=== PATIENT | female | born 1930 | race Caucasian/White ===

== ENCOUNTER → 2017-01-28 | Outpatient (CLI) | payer MEDICARE ==
--- NOTE | 2017-01-28 10:51 | RADIOLOGY REPORT (SQ) ---
EXAM DESCRIPTION: U/S RETROPERITON LTD COMPLETED DATE/TIME: 01/28/2017 9:29 am REASON FOR STUDY: ABDOMINAL AORTIC ANEURYSM (AORTA ONLY) I71.4 ABDOMINAL AORTIC ANEURYSM, WITHOUT R UPTURE COMPARISON: Ultrasound abdomen 01/25/2016 CT abdomen pelvis 10/18/2013 TECHNIQUE: Dynamic and static grayscale images acquired of the abdominal aorta and recorded on PACS. Additional selected color Doppler and spectral images recorded. LIMITATIONS: None. FINDINGS: Patient has a known infrarenal abdominal aortic aneurysm. At its widest it measures about 5.4 x 4.8 cm in diameter. This is larger than on previous measurements. Consider CT abdomen pelvis with contrast, particular attention to the abdominal aorta for followup. The upper abdominal aorta measures 2.2 x 2.6 cm, mid abdominal aorta 3.5 x 3.2 cm. Proximal common i liac arteries are not well seen. IMPRESSION: Increase in size of infrarenal abdominal aortic aneurysm as compared to 01/25/2016. Cons ider contrast CT angio of the abdomen and pelvis for follow-up. TECHNICAL DOCUMENTATION: JOB ID: [id number]- All Rights Reserved
== END ==
LOC: RAD 08:02
PROVIDERS: ATTEND Physician Assistant
DX: I71.4 Abdominal aortic aneurysm, without rupture (principal)
CPT/HCPCS: 76775

== ENCOUNTER 2017-04-05 15:12 | Emergency (ER) | payer MEDICARE ==
[2017-04-05] MEDS ORDERED: ASPIRIN 325 MG TABLET PO ONE (15:32)
--- NOTE | 2017-04-05 15:34 | ER Document Report ---
ED Medical Screen (RME) - General Chief Complaint: Chest Pain Stated Complaint: CHEST PAIN Time Seen by Provider: 04/05/17 15:32 Mode of Arrival: Wheelchair Information source: Patient, Relative TRAVEL OUTSIDE OF THE U.S. IN LAST 30 DAYS: No - HPI Patient complains to provider of: CP Onset: Other - Pt. with known aneurysm with onset of SSCP today. Did not take ASA yet - Related Data Allergies/Adverse Reactions: No Known Allergies Allergy (Verified 10/18/13 14:56) Past Medical History Pulmonary Medical History: Reports: Hx COPD Past Surgical History: Reports: Hx Gynecologic Surgery - UTERINE FIBROID, Hx Tubal Ligation - Immunizations Hx Diphtheria, Pertussis, Tetanus Vaccination: Yes
--- NOTE | 2017-04-05 15:56 | ER Document Report ---
ED General - General Chief Complaint: Chest Pain Stated Complaint: CHEST PAIN Time Seen by Provider: 04/05/17 15:32 Mode of Arrival: Wheelchair Notes: Patient is complaining of a sharp pain in her posterior left thoracic back that started a couple of hours ago while she was sitting at the computer. She did nothing unusual, no unusual activity or straining. Had not been sitting at the computer any longer than she has on many previous occasions. Pain comes and goes, lasting a few seconds or more when it comes and then remits. She is found nothing she can do to make it better or worse. It goes from the back lower posterior thoracic ribs straight through into the left front of the chest. Has never had this before. Denies any difficulty breathing or shortness of breath. No cough or cold or chest congestion. Denies any recent illness. Denies fever. Denies UTI symptoms. Denies abdominal pain, vomiting, or diarrhea. Patient has no history of heart disease. She was diagnosed with a an aortic aneurysm about 8 years ago. She was followed for this condition a couple of times a year until a year or so ago when they reduce the number of times that she was getting studies done to just once a year. 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 Patient has no real significant past medical history. Has been told she has a low blood pressure. Not diabetic. No history of heart disease. Only surgery is BTL. Only medication is for GERD. Patient stop smoking about 8 or 9 years ago. TRAVEL OUTSIDE OF THE U.S. IN LAST 30 DAYS: No - Related Data Allergies/Adverse Reactions: No Known Allergies Allergy (Verified 10/18/13 14:56) Home Medications: Current Home Medications Omeprazole [Omeprazole] 40 mg PO DAILY 04/05/17 [History] Past Medical History - General Information source: Patient, Relative - Social History Smoking Status: Former Smoker Family History: Reviewed & Not Pertinent - Past Medical History Cardiac Medical History: Reports: Other - History of abdominal aortic aneurysm Pulmonary Medical History: Reports: Hx COPD GI Medical History: Reports: Hx Gastroesophageal Reflux Disease Past Surgical History: Reports: Hx Gynecologic Surgery - UTERINE FIBROID, Hx Tubal Ligation - Immunizations Hx Diphtheria, Pertussis, Tetanus Vaccination: Yes Review of Systems - Review of Systems Notes: REVIEW OF SYSTEMS: CONSTITUTIONAL : Denies fever. EENT: Denies eye, ear, nose or mouth or throat pain or other symptoms. CARDIOVASCULAR: See HPI. RESPIRATORY: Denies cough, chest congestion, or shortness of breath. GASTROINTESTINAL: Denies abdominal pain or nausea, vomiting, or diarrhea. GENITOURINARY: Denies difficulty or painful urinating, urinary frequency, blood in urine. MUSCULOSKELETAL: Denies back or neck pain, but see HPI. Denies joint pain or swelling. SKIN: Denies rash or skin lesions. NEUROLOGICAL: Denies LOC or altered mental status. Denies headache. Denies sensory loss or motor deficits. ALL OTHER SYSTEMS REVIEWED AND NEGATIVE. Physical Exam - Vital signs Vitals: Temp Pulse Resp BP Pulse Ox 97.9 F 71 22 H 157/100 H 97 04/05/17 15:26 04/05/17 15:26 04/05/17 15:26 04/05/17 15:26 04/05/17 15:26 Interpretation: Normal - Notes Notes: PHYSICAL EXAMINATION: GENERAL: Well-appearing, in no acute distress. Anxious. Periodically jumps as if she is having sudden pain and says that is when she is feeling the sharp pain in the lower left thoracic back towards the front of the chest. HEAD: Atraumatic, normocephalic. EYES: Pupils equal round and reactive to light, extraocular movements intact. ENT: oropharynx clear without exudates. Moist mucous membranes. NECK: Normal range of motion, supple. LUNGS: Breath sounds clear and equal bilaterally. HEART: Regular rate and rhythm without murmurs. ABDOMEN: Soft, nontender. No guarding or rebound. 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 Patient is not aware of having this mass on her back, but we can see description of it in medical records here from a couple of years ago. When I touch it, it seems to elicit the pain that the patient is describing, but at other times it occurs when I am not touching the lipoma. Sometimes, no tenderness throughout entire back. EXTREMITIES: Normal range of motion without pain. Negative Homans bilaterally. NEUROLOGICAL: Normal speech, normal gait. Normal sensory, motor, and reflex exams. Awake, alert, and oriented x3. Cranial nerves normal. PSYCH: Normal mood, normal affect. SKIN: Warm, dry, no rashes. Course - Re-evaluation Re-evalutation: 04/05/17 20:06 Based upon patient's ultrasound of the aortic aneurysm, I contacted Dr. Ocasio in [place], vascular surgeon managed care liaison for this patient's doctor, and he wishes to see the patient in their emergency department. Arrangements will be made to transfer the patient there. - Vital Signs Vital signs: Temp Pulse Resp BP Pulse Ox 97.9 F 71 20 109/89 H 95 04/05/17 15:26 04/05/17 15:26 04/05/17 18:01 04/05/17 18:01 04/05/17 18:01 - Laboratory Result Diagrams: 04/05/17 15:55 04/05/17 15:55 Laboratory results interpreted by me: 04/05/17 04/05/17 04/05/17 15:55 15:55 16:40 RDW 14.2 H Est GFR (Non-Af Amer) 56 L Direct Bilirubin 0.5 H AST 42 H Urine Blood SMALL H Ur Leukocyte Esterase TRACE H - Diagnostic Test Radiology reviewed: Image reviewed, Reports reviewed - Ultrasound of the back reveals the described lipoma. Ultrasound of the aorta shows the aneurysm to be 5.3 cm in diameter compared to 5.1 cm on a previous film here January 28, 2017. Radiology results interpreted by me: 04/05/17 20:05 Chest x-ray is essentially normal. - EKG Interpretation by Me EKG shows normal: Sinus rhythm Rate: Normal Rhythm: NSR Additional EKG results interpreted by me: 04/05/17 20:05 EKG is essentially normal. - Transfer of Care Care transferred to following provider: Dr. Auguste Notes: 04/05/17 20:10 Patient's transport to [place] should be here in about 15 minutes. Patient has been presented to Dr. Ferreira who will be available as needed between now and the patient's discharge. Discharge - Discharge Clinical Impression: Abdominal aortic aneurysm, Left flank pain Referrals: MELIZA IBARRA PA-C [Primary Care Provider] - Follow up as needed
[2017-04-05] MEDS ORDERED: METHOCARBAMOL 750 MG TABLET PO ONE (15:57)
[2017-04-05 16:11] LABS: ABSOLUTE EOSINOPHILS # (AUTO) 0.1 10^3/uL (0.0-0.6); ABSOLUTE LYMPHOCYTES (AUTO) 1.7 10^3/uL (0.5-4.7); ABSOLUTE MONOCYTES (AUTO) 0.6 10^3/uL (0.1-1.4); ABSOLUTE NEUT (AUTO) 4.2 10^3/uL (1.7-8.2); BASOPHILS % (AUTO) 0.6 % (0-2); EOSINOPHILS % (AUTO) 0.9 % (0-6); HEMATOCRIT 40.2 % (36.0-47.0); HEMOGLOBIN 13.9 g/dL (12.0-15.5); HGB HCT DIFFERENCE 1.5; LYMPHOCYTES % (AUTO) 26.1 % (13-45); MEAN CORPUSCULAR HEMOGLOBIN 32.2 pg (27.0-33.4); MEAN CORPUSCULAR HGB CONC 34.5 g/dL (32.0-36.0); MEAN CORPUSCULAR VOLUME 93 fl (80-97); MONOCYTES % (AUTO) 8.9 % (3-13); RED CELL DISTRIBUTION WIDTH 14.2 % (11.5-14.0); SEGMENTED NEUTROPHILS % (AUTO) 63.5 % (42-78); WHITE BLOOD COUNT 6.6 10^3/uL (4.0-10.5)
[2017-04-05 16:30] LABS: ALANINE AMINOTRANSFERASE 38 U/L (9-52); ALKALINE PHOSPHATASE 91 U/L (38-126); ANION GAP 10 (5-19); ASPARTATE AMINO TRANSFERASE 42 U/L (14-36); BILIRUBIN,DIRECT 0.5 mg/dL (0.0-0.4); BILIRUBIN,TOTAL 0.7 mg/dL (0.2-1.3); BLOOD UREA NITROGEN 13 mg/dL (7-20); CALCIUM 9.5 mg/dL (8.4-10.2); CARBON DIOXIDE 26 mmol/L (22-30); CHLORIDE 105 mmol/L (98-107); CREATINE KINASE 99 U/L (30-135); CREATININE RESULT 0.95 mg/dL (0.52-1.25); GLUCOSE 91 mg/dL (75-110); POTASSIUM 3.8 mmol/L (3.6-5.0); SODIUM 141.1 mmol/L (137-145); TOTAL PROTEIN 7.5 g/dL (6.3-8.2)
[2017-04-05 16:41] LABS: CREATINE KINASE MB 1.87 ng/mL (<4.55)
--- NOTE | 2017-04-05 16:42 | RADIOLOGY REPORT (SQ) ---
EXAM DESCRIPTION: CHEST PA/LAT COMPLETED DATE/TIME: 04/05/2017 4:33 pm REASON FOR STUDY: cp COMPARISON: 02/12/2015 EXAM PARAMETERS: NUMBER OF VIEWS: two views TECHNIQUE: Digital Frontal and Lateral radiographic views of the chest acquired. RADIATION DOSE: NA LIMITATIONS: none FINDINGS: LUNGS AND PLEURA: Stable chronic lung change without new opacities, masses or pneumothorax . No pleural effusion. MEDIASTINUM AND HILAR STRUCTURES: No masses or contour abnormalities. HEART AND VASCULAR STRUCTURES: Heart normal size. No evidence for failure. BONES: No acute findings. HARDWARE: None in the chest. OTHER: No other significant finding. IMPRESSION: NO ACUTE CARDIOPULMONARY PROCESS. NO SIGNIFICANT CHANGE FROM PRIOR STUDY. TECHNICAL DOCUMENTATION: JOB ID: [id number] [employer]- All Rights Reserved
[2017-04-05 16:45] LABS: TROPONIN I < 0.012 ng/mL
[2017-04-05 18:14] LABS: APPEARANCE,URINE CLOUDY; BILIRUBIN,URINE NEGATIVE (NEGATIVE); GLUCOSE, URINE NEGATIVE (NEGATIVE); KETONES,URINE NEGATIVE (NEGATIVE); LEUKOCYTE ESTERASE,URINE TRACE (NEGATIVE); NITRITE,URINE NEGATIVE (NEGATIVE); PROTEIN,URINE NEGATIVE (NEGATIVE); URINE SPECIFIC GRAVITY 1.008; UROBILINOGEN,URINE NEGATIVE mg/dL (<2.0)
--- NOTE | 2017-04-05 19:14 | RADIOLOGY REPORT (SQ) ---
EXAM DESCRIPTION: U/S RETROPERITON (RENAL/AORTA) COMPLETED DATE/TIME: 04/05/2017 7:03 pm REASON FOR STUDY: Hx AAA, also clot in renal vessel COMPARISON: 01/28/2017 TECHNIQUE: Static and dynamic grayscale images acquired of the aorta and stored on PACs. Selected co kourtney Doppler and spectral images recorded. LIMITATIONS: Bowel gas. FINDINGS: AORTIC CALIBER MAXIMAL PROXIMAL: 3.0 cm. MID: 2.9 cm. DISTAL: 5.3 cm. ILIAC DIAMETER Not visualized. IMPRESSION: AGAIN NOTED IS DISTAL INFRARENAL ABDOMINAL AORTIC ANEURYSM WHICH IS INCREASED COMPARED T O THE PRIOR STUDY MEASURING 5.3 CM WHERE IT MEASURED 5.1 CM. TECHNICAL DOCUMENTATION: JOB ID: [id number] [employer]- All Rights Reserved
--- NOTE | 2017-04-05 19:22 | RADIOLOGY REPORT (SQ) ---
EXAM DESCRIPTION: U/S EXTREMITY NONVASCULAR COMP COMPLETED DATE/TIME: 04/05/2017 7:11 pm REASON FOR STUDY: Left lower thoracic pain, mass there, ? lipoma ? COMPARISON: CORRELATION MADE TO CT CHEST FROM 06/14/2014. TECHNIQUE: Dynamic and static grayscale images acquired of the localized site of clinical concern an d recorded on PACS. Additional selected color Doppler and spectral images recorded. SITE OF CONCERN: Left mid back. LIMITATIONS: None. FINDINGS: SKIN AND SUBCUTANEOUS TISSUES: 6.6 cm lipoma. Soft tissues otherwise normal. DEEP SOFT TISSUES/MUSCLES: No masses. No fluid collections. No edema. VASCULAR: No increased or decreased vascularity. No occlusions. OTHER: No other significant finding. IMPRESSION: 6.6 CM LIPOMA CORRESPONDING TO PALPABLE ABNORMALITY LEFT MID BACK STABLE FROM PRIOR CT C HEST PERFORMED IN 2014. TECHNICAL DOCUMENTATION: JOB ID: [id number] [employer]- All Rights Reserved
[2017-04-05 20:52] VITALS: BP 160/82
--- NOTE | 2017-04-05 23:03 | EKG REPORT ---
SEVERITY:- NORMAL ECG - SINUS RHYTHM : Confirmed by: Vikash Francisco 05-Apr-2017 23:02:53
== END 2017-04-05 20:57 | disposition short-term general hospital (02) ==
LOC: ER 15:12
DX: I71.4 Abdominal aortic aneurysm, without rupture (principal); D17.1 Benign lipomatous neoplasm of skin and subcutaneous tissue of trunk; R10.9 Unspecified abdominal pain; F41.9 Anxiety disorder, unspecified; J44.9 Chronic obstructive pulmonary disease, unspecified; K21.9 Gastro-esophageal reflux disease without esophagitis; Z79.899 Other long term (current) drug therapy; Z87.891 Personal history of nicotine dependence
CPT/HCPCS: 93005; 99285; 36415; 82553; 82550; 85025; 80053; 81001; 84484; 71020; 76881; 76770; 93010; A9270; J3490

== ENCOUNTER 2017-06-28 21:31 | Emergency (ER) | payer MEDICARE ==
[2017-06-28] MEDS ORDERED: PENICILLIN V POTASSIUM 500 MG TABLET PO ONE (22:39)
[2017-06-28] MEDS ORDERED: BUPIVACAINE HCL 0.5 % INJ/PF 30 ML SDV INJ ONE (22:39)
--- NOTE | 2017-06-28 22:40 | ER Document Report ---
HPI - HPI Pain Level: 5 Context: Patient is an 86-year-old female who admits to toothache that started today. States it is her right lower jaw. She states that the tooth she feels as loose and needs to come out and she went to the dentist a week ago who told her that the tooth did not need to come out. She denies any fever, facial swelling. States that she took aspirin and naproxen prior to arrival. - EENT EENT: DENIES: Sore Throat, Ear Pain, Eye problems - NEURO Neurology: DENIES: Headache, Weakness, Vision blurred, Dizzinesss / Vertigo - CARDIOVASCULAR Cardiovascular: DENIES: Chest pain - RESPIRATORY Respiratory: DENIES: Trouble Breathing, Coughing - GASTROINTESTINAL Gastrointestinal: DENIES: Abdominal Pain, Black / Bloody Stools - URINARY Urinary: DENIES: Dysuria, Urgency, Frequency - REPRODUCTIVE Reproductive: DENIES: : - MUSCULOSKELETAL Musculoskeletal: DENIES: Extremity pain Past Medical History - Social History Smoking Status: Never Smoker Family History: Reviewed & Not Pertinent Patient has suicidal ideation: No Patient has homicidal ideation: No Pulmonary Medical History: Reports: Hx COPD Renal/ Medical History: Denies: Hx Peritoneal Dialysis GI Medical History: Reports: Hx Gastroesophageal Reflux Disease Past Surgical History: Reports: Hx Gynecologic Surgery - UTERINE FIBROID, Hx Tubal Ligation - Immunizations Hx Diphtheria, Pertussis, Tetanus Vaccination: Yes Vertical Provider Document - CONSTITUTIONAL Agree With Documented VS: Yes Notes: PHYSICAL EXAM GENERAL: Alert, interacts well. HEENT: NCAT, no significant gingival irritation, swelling at the base of tooth 31 MMM, Uvula midline. Airway patent. No evidence of tonsillar enlargement, peritonsillar abscess, retropharyngeal abscess. Neck: No evidence of Paul's angina, supple, trachea midline nontender to palpation EXTREMITIES: Moves all 4 extremities spontaneously. No edema, radial and dorsalis pedis pulses 2/4 bilaterally. No cyanosis. NEUROLOGICAL: Alert and oriented x4. Normal speech. PSYCH: Normal affect, normal mood. SKIN: Warm, dry, normal turgor. No rashes or lesions noted. - INFECTION CONTROL TRAVEL OUTSIDE OF THE U.S. IN LAST 30 DAYS: No - RESPIRATORY O2 Sat by Pulse Oximetry: 100 Course - Re-evaluation Re-evalutation: 06/28/17 23:09 Presentation is most consistent with likely an infected tooth. Airway is patent. Vitals within normal limits. Patient is able swallow without any difficulty. There is no significant facial swelling. Patient will be started on antibiotics and a limited number of pain medications. I've instructed to follow-up with dentistry as earliest ability for definitive management. Return precautions and follow-up recommendations have been discussed at length. - Vital Signs Vital signs: Temp Pulse Resp BP Pulse Ox 98.5 F 68 20 170/79 H 100 06/28/17 21:45 06/28/17 21:45 06/28/17 21:45 06/28/17 21:45 06/28/17 21:45 Procedures - Additional Procedures Dental block Additional Procedures: Other - 2.5 cc of 0.5% bupivacaine was injected and an inferior alveolar dental block of the right lower jaw without complication and complete resolution of patient's symptoms Discharge - Discharge Clinical Impression: Toothache Condition: Good Disposition: HOME, SELF-CARE Additional Instructions: You have been seen for dental pain. It is very important that you follow-up with a dentist for definitive care. Please return if you develop fever greater than 101, swelling in your face, vomiting, difficulty breathing or swallowing, or any other symptoms that are concerning to you. For pain you should take ibuprofen 600 mg every 6 hours as needed. [facility] [address] [place], [place] Friday mornings, by appointment [facility] [address] [place] [address] [facility] [address] [facility] [address] [facility] [address] [email or web address] [address] [place] [address] Friday- 8:00am to 5:00 pm Will see patients from other [facility]. Charges based on income and family size and accepts Medicare, Medicaid, and Insurances Will pull molars [facility] [place] [address] Hours of Operation 8:00 am - 4:30 pm weekdays The following dental offices accept Medicaid: [facility] Dr. Barrera Dr. Michael Dr. Cunningham Dr. Carpenter Nito Garvey, Carrie, and Zafar oral surgery Dr. Flores ([place]) Dr. Hernadez ([place]) [facility] Drs. Steve ([place]) Dr. Marie ([place]) [facility] Dr. Shah ([place]) Drs. Jarrell and ([place]) Medicaid Care Line Prescriptions: Penicillin V Potassium [Penicillin Vk 500 mg Tablet] 500 mg PO TID 7 Days #21 tablet Referrals: MELIZA IBARRA PA-C [Primary Care Provider] - Follow up as needed
[2017-06-29 00:34] VITALS: BP 147/78
== END 2017-06-28 23:24 | disposition home or self-care (01) ==
LOC: ER 21:31
DX: K08.89 Other specified disorders of teeth and supporting structures (principal); J44.9 Chronic obstructive pulmonary disease, unspecified
CPT/HCPCS: 99282; 64400; J3490; A9270

== ENCOUNTER 2017-09-09 17:31 | Emergency (ER) | payer OTHER, MEDICARE ==
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
[2017-09-09 18:51] LABS: ABSOLUTE LYMPHOCYTES (AUTO) 1.6 10^3/uL (0.5-4.7); ABSOLUTE MONOCYTES (AUTO) 0.7 10^3/uL (0.1-1.4); ABSOLUTE NEUT (AUTO) 6.2 10^3/uL (1.7-8.2); BASOPHILS % (AUTO) 0.2 % (0-2); EOSINOPHILS % (AUTO) 0.4 % (0-6); HEMATOCRIT 39.5 % (36.0-47.0); HEMOGLOBIN 13.5 g/dL (12.0-15.5); LYMPHOCYTES % (AUTO) 18.5 % (13-45); MEAN CORPUSCULAR HEMOGLOBIN 31.9 pg (27.0-33.4); MEAN CORPUSCULAR HGB CONC 34.1 g/dL (32.0-36.0); MEAN CORPUSCULAR VOLUME 94 fl (80-97); MONOCYTES % (AUTO) 8.5 % (3-13); PLATELET COUNT 163 10^3/uL (150-450); RED BLOOD COUNT 4.21 10^6/uL (3.72-5.28); RED CELL DISTRIBUTION WIDTH 14.2 % (11.5-14.0); SEGMENTED NEUTROPHILS % (AUTO) 72.4 % (42-78); TOTAL CELLS COUNTED % (AUTO) 100 %; WHITE BLOOD COUNT 8.5 10^3/uL (4.0-10.5)
[2017-09-09 19:11] LABS: ALANINE AMINOTRANSFERASE 34 U/L (9-52); ALBUMIN 3.9 g/dL (3.5-5.0); ALKALINE PHOSPHATASE 86 U/L (38-126); ANION GAP 11 (5-19); ASPARTATE AMINO TRANSFERASE 36 U/L (14-36); BILIRUBIN,DIRECT 0.3 mg/dL (0.0-0.4); BILIRUBIN,TOTAL 0.5 mg/dL (0.2-1.3); BLOOD UREA NITROGEN 20 mg/dL (7-20); CALCIUM 9.4 mg/dL (8.4-10.2); CARBON DIOXIDE 29 mmol/L (22-30); CHLORIDE 105 mmol/L (98-107); GLUCOSE 87 mg/dL (75-110); POTASSIUM 3.7 mmol/L (3.6-5.0); SODIUM 145.3 mmol/L (137-145); TOTAL PROTEIN 7.2 g/dL (6.3-8.2)
[2017-09-09 19:14] LABS: APPEARANCE,URINE SLIGHTLY-CLOUDY; BILIRUBIN,URINE NEGATIVE (NEGATIVE); COLOR,URINE YELLOW; GLUCOSE, URINE NEGATIVE (NEGATIVE); KETONES,URINE NEGATIVE (NEGATIVE); LEUKOCYTE ESTERASE,URINE TRACE (NEGATIVE); NITRITE,URINE NEGATIVE (NEGATIVE); PROTEIN,URINE NEGATIVE (NEGATIVE); URINE SPECIFIC GRAVITY 1.029
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
[2017-09-09 20:51] LABS: INTERNATIONAL RATION (INR) 1.05; PROTHROMBIN TIME 14.2 SEC (11.4-15.4)
[2017-09-09 20:52] LABS: PARTIAL THROMBOPLASTIN TIME 34.1 SEC (23.5-35.8)
[2017-09-09 22:25] VITALS: BP 149/105
== END 2017-09-09 22:56 | disposition home or self-care (01) ==
LOC: ER 17:31
DX: I71.4 Abdominal aortic aneurysm, without rupture (principal); V89.2XXA Person injured in unspecified motor-vehicle accident, traffic, initial encounter; J44.9 Chronic obstructive pulmonary disease, unspecified; Z98.51 Tubal ligation status
CPT/HCPCS: 36415; 74177; 80053; 81001; 83690; 85025; 85610; 85730; 99284

== ENCOUNTER 2018-03-21 09:01 | Emergency (ER) | payer MEDICARE, OTHER ==
--- NOTE | 2018-03-21 09:40 | ER Document Report ---
ED Medical Screen (RME) - General Chief Complaint: Back Pain Stated Complaint: BACK PAIN Time Seen by Provider: 03/21/18 09:38 Notes: Patient is complaining of pain in the lumbar back region since she today. She recalls no injury or unusual activity. Has never had this before. Pain is worsened by standing up and moving. Has not been ill recently. No UTI symptoms. No fevers. No blood in urine. Patient takes no medications for any medical problems. Has never had shingles. Does not know about chickenpox. Patient has numerous small moles all over her body and says her mother had the same thing. However, in the lumbar back region, there are numerous scratch taylor with rough tops to them. They have the appearance that it could be shingles, but are bilateral in the lumbar region. They appear to be excoriated , but the patient is unable to reach that area of her back with her hand so if these were vesicles, they may have broken open on the bed covers, or clothing, etc. TRAVEL OUTSIDE OF THE [place].S. IN LAST 30 DAYS: No - Related Data Allergies/Adverse Reactions: No Known Allergies Allergy (Verified 03/21/18 09:38) Past Medical History - Social History Chew tobacco use (# tins/day): No Frequency of alcohol use: None Drug Abuse: None Pulmonary Medical History: Reports: Hx COPD Renal/ Medical History: Denies: Hx Peritoneal Dialysis GI Medical History: Reports: Hx Gastroesophageal Reflux Disease Past Surgical History: Reports: Hx Gynecologic Surgery - UTERINE FIBROID, Hx Tubal Ligation - Immunizations Hx Diphtheria, Pertussis, Tetanus Vaccination: Yes Physical Exam - Vital signs Vitals: Temp Pulse Resp BP Pulse Ox 97.6 F 65 18 126/78 H 96 03/21/18 09:07 03/21/18 09:07 03/21/18 09:07 03/21/18 09:07 03/21/18 09:07 Course - Vital Signs Vital signs: Temp Pulse Resp BP Pulse Ox 97.6 F 65 18 126/78 H 96 03/21/18 09:07 03/21/18 09:07 03/21/18 09:07 03/21/18 09:07 03/21/18 09:07 Doctor's Discharge - Discharge Referrals: MELIZA IBARRA PA-C [Primary Care Provider] - Follow up as needed
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
[2018-03-21 10:27] LABS: ABSOLUTE LYMPHOCYTES (AUTO) 1.2 10^3/uL (0.5-4.7); ABSOLUTE MONOCYTES (AUTO) 0.4 10^3/uL (0.1-1.4); BASOPHILS % (AUTO) 0.2 % (0-2); EOSINOPHILS % (AUTO) 0.6 % (0-6); HEMATOCRIT 38.3 % (36.0-47.0); HEMOGLOBIN 13.3 g/dL (12.0-15.5); LYMPHOCYTES % (AUTO) 17.5 % (13-45); MEAN CORPUSCULAR HGB CONC 34.7 g/dL (32.0-36.0); MEAN CORPUSCULAR VOLUME 92 fl (80-97); MONOCYTES % (AUTO) 6.6 % (3-13); PLATELET COUNT 160 10^3/uL (150-450); RED BLOOD COUNT 4.16 10^6/uL (3.72-5.28); RED CELL DISTRIBUTION WIDTH 14.1 % (11.5-14.0); SEGMENTED NEUTROPHILS % (AUTO) 75.1 % (42-78); TOTAL CELLS COUNTED % (AUTO) 100 %; WHITE BLOOD COUNT 6.6 10^3/uL (4.0-10.5)
[2018-03-21 10:44] LABS: ALANINE AMINOTRANSFERASE 24 U/L (9-52); ALBUMIN 3.7 g/dL (3.5-5.0); ALKALINE PHOSPHATASE 137 U/L (38-126); ANION GAP 11 (5-19); ASPARTATE AMINO TRANSFERASE 35 U/L (14-36); BILIRUBIN,DIRECT 0.3 mg/dL (0.0-0.4); BILIRUBIN,TOTAL 0.9 mg/dL (0.2-1.3); BLOOD UREA NITROGEN 13 mg/dL (7-20); CALCIUM 9.1 mg/dL (8.4-10.2); CARBON DIOXIDE 28 mmol/L (22-30); CHLORIDE 104 mmol/L (98-107); GLUCOSE 96 mg/dL (75-110); POTASSIUM 4.1 mmol/L (3.6-5.0); SODIUM 142.6 mmol/L (137-145); TOTAL PROTEIN 7.2 g/dL (6.3-8.2)
[2018-03-21 12:12] LABS: APPEARANCE,URINE SLIGHTLY-CLOUDY; BILIRUBIN,URINE NEGATIVE (NEGATIVE); COLOR,URINE YELLOW; GLUCOSE, URINE NEGATIVE (NEGATIVE); KETONES,URINE NEGATIVE (NEGATIVE); LEUKOCYTE ESTERASE,URINE NEGATIVE (NEGATIVE); NITRITE,URINE NEGATIVE (NEGATIVE); PROTEIN,URINE NEGATIVE (NEGATIVE); URINE SPECIFIC GRAVITY 1.032; UROBILINOGEN,URINE NEGATIVE mg/dL (<2.0)
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
[2018-03-21 13:13] VITALS: BP 151/69
--- NOTE | 2018-03-21 21:41 | EKG REPORT ---
SEVERITY:- ABNORMAL ECG - SINUS RHYTHM IVCD, CONSIDER ATYPICAL RBBB : Confirmed by: Candy Stoll MD 21-Mar-2018 21:40:46
== END 2018-03-21 14:06 | disposition home or self-care (01) ==
LOC: ER 09:01
DX: M54.5 Low back pain (principal); I71.4 Abdominal aortic aneurysm, without rupture; R10.817 Generalized abdominal tenderness; R10.9 Unspecified abdominal pain; I45.10 Unspecified right bundle-branch block; J44.9 Chronic obstructive pulmonary disease, unspecified
CPT/HCPCS: 36415; 74177; 80053; 81001; 83605; 83690; 85025; 93005; 93010; 99284

== ENCOUNTER → 2018-03-24 | Outpatient (CLI) | payer MEDICARE ==
--- NOTE | 2018-03-24 13:56 | RADIOLOGY REPORT (SQ) ---
EXAM DESCRIPTION: MRI LUMBAR SPINE WITHOUT COMPLETED DATE/TIME: 03/24/2018 1:41 pm REASON FOR STUDY: FX OF LUMBAR SPINE (M48.56XA) M48.56XA COLLAPSED VERTEBRA, NEC, LUMBAR REGION, IN IT COMPARISON: 03/21/2018 CT. TECHNIQUE: Sagittal and Axial imaging includes T1, T2, STIR and gradient echo sequences. Coronal T2/ HASTE imaging. LIMITATIONS: None. FINDINGS: VISUALIZED UPPER ABDOMEN: Limited evaluation. No acute or suspicious findings suggested. SEGMENTATION: No transitional anatomy. The lowest well-developed disc space is labeled L5-S1. ALIGNMENT: Straightening of the normal lumbar lordosis. Very slight convex left scoliotic curve. VERTEBRAE: Compression fractures at L3 and L4. Approximately 40% height loss at L3. There is associ ated upper endplate fracture line, mild edema and cleft of fluid. At L4, there is approximately 50% height loss but no edema or fracture. No retropulsion at either level. BONE MARROW: As above. Marrow signal otherwise normal. DISC SIGNAL: Multilevel diminished disc signal and height. POSTERIOR ELEMENTS: No pars defect or bulky degenerative overgrowth. HARDWARE: None in the spine. CORD AND CONUS: Normal in size and signal intensity. Conus at the appropriate level. SOFT TISSUES: Known infrarenal abdominal aortic aneurysm, incompletely assessed. No retroperitoneal edema. L1-L2: No significant spinal stenosis or exit foraminal stenosis. L2-L3: Mild disc bulge. Slight facet overgrowth. Mild central and foraminal stenosis. L3-L4: Disc and facet disease with mild -moderate central narrowing. Moderate foraminal encroachment . L4-L5: Generalized disc bulging flattens the ventral thecal sac and probably impinges on the bilatera l L5 nerve roots. Otherwise, mild central stenosis. Moderate foraminal narrowing. L5-S1: Disc height loss with bulge. Superimposed central disc hernia with slight superior extrusion. Mild mass effect on the left S1 nerve root. LOWER THORACIC: Disc disease without conus compression. SACRUM: Visualized upper sacrum intact. OTHER: No other significant findings. IMPRESSION: 1. Relatively recent appearing L3 compression fracture without retropulsion. 2. Chronic appearing L4 compression fracture. 3. No critical central stenosis. Spondylosis as above. TECHNICAL DOCUMENTATION: JOB ID: [id number] [employer]- All Rights Reserved Reading location - IP/workstation name: [email or web address]
== END ==
LOC: RAD 12:07
PROVIDERS: ATTEND Family Medicine
DX: M48.56XA Collapsed vertebra, not elsewhere classified, lumbar region, initial encounter for fracture (principal)
CPT/HCPCS: 72148

== ENCOUNTER 2018-05-07 18:36 | Emergency (ER) | payer OTHER, MEDICARE ==
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
[2018-05-07 19:35] LABS: ABSOLUTE LYMPHOCYTES (AUTO) 0.9 10^3/uL (0.5-4.7); ABSOLUTE MONOCYTES (AUTO) 0.4 10^3/uL (0.1-1.4); ABSOLUTE NEUT (AUTO) 4.4 10^3/uL (1.7-8.2); BASOPHILS % (AUTO) 0.3 % (0-2); EOSINOPHILS % (AUTO) 0.9 % (0-6); HEMATOCRIT 38.1 % (36.0-47.0); HEMOGLOBIN 13.1 g/dL (12.0-15.5); LYMPHOCYTES % (AUTO) 15.8 % (13-45); MEAN CORPUSCULAR HEMOGLOBIN 31.8 pg (27.0-33.4); MEAN CORPUSCULAR HGB CONC 34.4 g/dL (32.0-36.0); MEAN CORPUSCULAR VOLUME 92 fl (80-97); MONOCYTES % (AUTO) 6.7 % (3-13); PLATELET COUNT 170 10^3/uL (150-450); RED BLOOD COUNT 4.13 10^6/uL (3.72-5.28); RED CELL DISTRIBUTION WIDTH 14.2 % (11.5-14.0); SEGMENTED NEUTROPHILS % (AUTO) 76.3 % (42-78); TOTAL CELLS COUNTED % (AUTO) 100 %; WHITE BLOOD COUNT 5.8 10^3/uL (4.0-10.5)
[2018-05-07] MEDS ORDERED: FENTANYL CITRATE INJ/PF 100 MCG/2 ML AMPUL IV ONE (19:58)
[2018-05-07] MEDS ORDERED: ONDANSETRON HCL INJ/PF 4 MG/2 ML SDV IV ONE (19:58)
[2018-05-07 19:59] LABS: ALANINE AMINOTRANSFERASE 45 U/L (9-52); ALBUMIN 3.7 g/dL (3.5-5.0); ALKALINE PHOSPHATASE 146 U/L (38-126); ANION GAP 5 (5-19); ASPARTATE AMINO TRANSFERASE 55 U/L (14-36); BILIRUBIN,DIRECT 0.3 mg/dL (0.0-0.4); BILIRUBIN,TOTAL 0.6 mg/dL (0.2-1.3); BLOOD UREA NITROGEN 13 mg/dL (7-20); CALCIUM 8.9 mg/dL (8.4-10.2); CARBON DIOXIDE 31 mmol/L (22-30); CHLORIDE 104 mmol/L (98-107); CREATINE KINASE 83 U/L (30-135); GLUCOSE 101 mg/dL (75-110); POTASSIUM 4.1 mmol/L (3.6-5.0); SODIUM 139.5 mmol/L (137-145); TOTAL PROTEIN 6.8 g/dL (6.3-8.2)
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
[2018-05-07 20:05] LABS: CREATINE KINASE MB 1.78 ng/mL (<4.55)
[2018-05-07 20:06] LABS: TROPONIN I < 0.012 ng/mL
[2018-05-07] MEDS ORDERED: MORPHINE SULFATE 10 MG/ML INJ IV ONE (21:10)
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
[2018-05-07] MEDS ORDERED: LIDOCAINE 5% (700 MG) TRANSDERMAL ADH..PATCH TP ONE (22:17)
[2018-05-07 22:40] VITALS: BP 130/64
--- NOTE | 2018-05-08 07:55 | EKG REPORT ---
SEVERITY:- ABNORMAL ECG - SINUS RHYTHM IVCD, CONSIDER ATYPICAL RBBB : Confirmed by: Dung Cortez MD 08-May-2018 07:54:13
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
== END 2018-05-07 22:53 | disposition home or self-care (01) ==
LOC: ER 18:36
DX: S20.219A Contusion of unspecified front wall of thorax, initial encounter (principal); R07.9 Chest pain, unspecified; J44.9 Chronic obstructive pulmonary disease, unspecified; V43.52XA Car driver injured in collision with other type car in traffic accident, initial encounter; Z98.51 Tubal ligation status
CPT/HCPCS: 93005; 99284; 96374; 96375; 36415; 82553; 82550; 83690; 85025; 80053; 84484; 71045; 71275; 74174; 93010; J3010; J2270; J2405

== ENCOUNTER → 2018-08-27 | Outpatient (CLI) | payer MEDICARE ==
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
== END ==
LOC: RAD 09:53
PROVIDERS: ATTEND Physician Assistant
DX: R74.8 Abnormal levels of other serum enzymes (principal)
CPT/HCPCS: 76700; 93976

== ENCOUNTER 2019-06-15 11:53 | Inpatient (IN) | payer MEDICARE ==
[2019-06-15] MEDS ORDERED: MORPHINE SULFATE 10 MG/ML INJ IV ONE ×4 (12:28→16:47)
--- NOTE | 2019-06-15 13:37 | RADIOLOGY REPORT (SQ) ---
EXAM DESCRIPTION: HIP RIGHT AP/LATERAL COMPLETED DATE/TIME: 06/15/2019 1:23 pm REASON FOR STUDY: right hip pain COMPARISON: None. NUMBER OF VIEWS: Two views. TECHNIQUE: AP pelvis and additional frog-leg view of the right hip. LIMITATIONS: None. FINDINGS: MINERALIZATION: Normal. RIGHT HIP: There is a low intertrochanteric fracture of the right hip. LEFT HIP: No fracture or dislocation. No worrisome bone lesions. PUBIS AND ISCHIUM: No fracture. PELVIS: No fracture. SACRUM: No fracture or dislocation. No worrisome bone lesions. LOWER LUMBAR SPINE: No fracture or dislocation. No worrisome bone lesions. No significant disc disea se. SOFT TISSUES: No findings. OTHER: No other significant finding. IMPRESSION: Low intertrochanteric fracture of the right hip. TECHNICAL DOCUMENTATION: JOB ID: [id number] [employer]- All Rights Reserved Reading location - IP/workstation name: [email or web address]
[2019-06-15 15:35] LABS: HEMATOCRIT 39.9 % (36.0-47.0); HEMOGLOBIN 13.8 g/dL (12.0-15.5); MEAN CORPUSCULAR HEMOGLOBIN 32.1 pg (27.0-33.4); MEAN CORPUSCULAR HGB CONC 34.5 g/dL (32.0-36.0); MEAN CORPUSCULAR VOLUME 93 fl (80-97); PLATELET COUNT 143 10^3/uL (150-450); RED BLOOD COUNT 4.29 10^6/uL (3.72-5.28); RED CELL DISTRIBUTION WIDTH 13.8 % (11.5-14.0); WHITE BLOOD COUNT 12.4 10^3/uL (4.0-10.5)
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
[2019-06-15 15:38] LABS: ALBUMIN 3.7 g/dL (3.5-5.0); ALKALINE PHOSPHATASE 133 U/L (38-126); ANION GAP 11 (5-19); ASPARTATE AMINO TRANSFERASE 64 U/L (14-36); BILIRUBIN,DIRECT 0.3 mg/dL (0.0-0.4); BILIRUBIN,TOTAL 1.2 mg/dL (0.2-1.3); BLOOD UREA NITROGEN 27 mg/dL (7-20); CALCIUM 9.4 mg/dL (8.4-10.2); CARBON DIOXIDE 26 mmol/L (22-30); CHLORIDE 102 mmol/L (98-107); CREATINE KINASE 1065 U/L (30-135); GLUCOSE 136 mg/dL (75-110); POTASSIUM 4.3 mmol/L (3.6-5.0); TOTAL PROTEIN 7.2 g/dL (6.3-8.2)
[2019-06-15] MEDS ORDERED: NORMAL SALINE 1000 ML 1,000 ML IV ONE (16:10)
[2019-06-15 16:31] LABS: ABSOLUTE LYMPHOCYTES# (MANUAL) 0.6 10^3/uL (0.5-4.7); ABSOLUTE MONOCYTES # (MANUAL) 0.4 10^3/uL (0.1-1.4); BASOPHILS % (MANUAL) 0 % (0-2); EOSINOPHILS % (MANUAL) 0 % (0-6); LYMPHOCYTES % (MANUAL) 4 % (13-45); METAMYELOCYTES % (MANUAL) 1 % (0-1); MONOCYTES % (MANUAL) 3 % (3-13); SEGMENTED NEUTROPHILS % (MAN) 91 % (42-78); TOTAL CELLS COUNTED 100
[2019-06-15 16:32] LABS: OVALOCYTES SLIGHT; PLATELET COMMENT ADEQUATE; PLATELET LARGE PRESENT; POIKILOCYTOSIS SLIGHT; TEAR DROP CELLS SLIGHT
[2019-06-15] MEDS ORDERED: ONDANSETRON HCL INJ/PF 4 MG/2 ML SDV IV PRN (16:44)
--- NOTE | 2019-06-15 17:13 | PDOC H&P ---
History of Present Illness Admission Date/PCP: 06/15/19 16:11 MELIZA IBARRA PA-C History of Present Illness: CASIE KINSEY is a 88 year old female who was found down in her bathroom in her home by her son. It is not known how long she was down. EMS was called and I am getting this as a third or fourth republican report, but apparently the home situation is extremely filthy. She is in her dwelling apparently by herself and her son comes to check on her periodically. She is brought to the emergency room and she was had feces on her feet and the rest of her lower extremities. She was in a lot of discomfort and they were able to get x-rays of her pelvis and hips that showed a right intertrochanteric femur fracture. They try to get plain films of her lower back but between her mental status which consists of some baseline dementia I suspect, and her pain, they were unable to lay her flat to get images of her lumbar spine. Her CK was little bit elevated at just over 1000. She is being admitted for further evaluation and management. Past Medical History Pulmonary Medical History: Reports: Chronic Obstructive Pulmonary Disease (COPD) GI Medical History: Reports: Gastroesophageal Reflux Disease Past Surgical History Past Surgical History: Reports: Tubal Ligation Social History Smoking Status: Former Smoker Electronic Cigarette use?: No Family History Family History: Reviewed & Not Pertinent Parental Family History Reviewed: No - Unable to obtain Children Family History Reviewed: No - Unable to obtain Sibling(s) Family History Reviewed.: No - Unable to obtain Medication/Allergy Home Medications: Lidocaine [Lidoderm 5% (700 mg) Transdermal Patch] 1 patch TP DAILY #30 adh..patch 05/07/18 Oxycodone HCl/Acetaminophen [Percocet 2.5-325 Mg Tablet] 1 each PO BID #6 tablet 05/07/18 Allergies/Adverse Reactions: No Known Allergies Allergy (Verified 03/21/18 09:38) Review of Systems ROS unobtainable: Due to mental status Physical Exam Vital Signs: Intake & Output 06/14/19 06/15/19 06/16/19 06:59 06:59 06:59 Weight 58.9 kg General appearance: PRESENT: cooperative, disheveled - She was absolutely filthy, mild distress Head exam: PRESENT: atraumatic, normocephalic Eye exam: PRESENT: EOMI, PERRLA. ABSENT: conjunctival injection, nystagmus, scleral icterus Ear exam: PRESENT: normal external ear exam Mouth exam: PRESENT: dry mucosa, neck supple Teeth exam: PRESENT: poor dentation Neck exam: PRESENT: full ROM. ABSENT: carotid bruit, JVD, lymphadenopathy, meningismus, tenderness, thyromegaly Respiratory exam: PRESENT: clear to auscultation jhon, symmetrical, unlabored. ABSENT: accessory muscle use, chest wall tenderness, crackles, prolonged expiratory phas, retraction, rhonchi, tachypnea, wheezes Cardiovascular exam: PRESENT: RRR, +S1, +S2 Pulses: PRESENT: normal carotid pulses Vascular exam: PRESENT: normal capillary refill GI/Abdominal exam: PRESENT: normal bowel sounds, soft. ABSENT: distended, guarding, rebound, tenderness Extremities exam: ABSENT: clubbing, pedal edema Musculoskeletal exam: PRESENT: deformity - Right hip swelling, tenderness - Right hip Neurological exam: PRESENT: alert, awake, oriented to person. ABSENT: oriented to place, oriented to time, oriented to situation Skin exam: PRESENT: dry, warm, other - Covered with feces Results Laboratory Results: 06/15/19 14:51 06/15/19 14:51 06/15/19 06/15/19 14:51 14:51 WBC 12.4 H RBC 4.29 Hgb 13.8 Hct 39.9 MCV 93 MCH 32.1 MCHC 34.5 RDW 13.8 Plt Count 143 L Seg Neutrophils % Not Reportable Sodium 139.3 Potassium 4.3 Chloride 102 Carbon Dioxide 26 Anion Gap 11 BUN 27 H Creatinine 0.92 Est GFR ( Amer) > 60 Glucose 136 H Calcium 9.4 Total Bilirubin 1.2 AST 64 H Alkaline Phosphatase 133 H Total Protein 7.2 Albumin 3.7 06/15/19 14:51 Creatine Kinase 1065 H Impressions: Hip/Pelvis X-Ray 06/15/19 00:00 IMPRESSION: Low intertrochanteric fracture of the right hip. Assessment and Plan - Diagnosis (1) Right femoral fracture Qualifiers: Encounter type: initial encounter Femur location: intertrochanteric Fracture type: closed Fracture alignment: displaced Qualified Code(s): S72.141A - Displaced intertrochanteric fracture of right femur, initial encounter for closed fracture Is this a current diagnosis for this admission?: Yes Plan: Orthopedics has been consulted. IV morphine for pain control. We will give her some IV fluids. N.p.o. after midnight. We will have to get consent from her son. We will also discuss her CODE STATUS with her son because with her mental status she is currently unable to make that decision herself. I suspect she has some baseline dementia. She will also wind up needing placement. She may need long-term placement because of her social situation. - Time Time Spent with patient: 35 or more minutes - Inpatient Certification Based on my medical assessment, after consideration of the patient's comorbidities, presenting symptoms, or acuity I expect that the services needed warrant INPATIENT care.: Yes I certify that my determination is in accordance with my understanding of Medicare's requirements for reasonable and necessary INPATIENT services [42 CFR 412.3e].: Yes Medical Necessity: Need For IV Fluids, Need for Pain Control, Need for Surgery
[2019-06-15 17:24] LABS: APPEARANCE,URINE CLEAR; BILIRUBIN,URINE NEGATIVE (NEGATIVE); COLOR,URINE AMBER; GLUCOSE, URINE NEGATIVE (NEGATIVE); KETONES,URINE TRACE mg/dL (NEGATIVE); PROTEIN,URINE 30 mg/dL (NEGATIVE); URINE SPECIFIC GRAVITY 1.028; UROBILINOGEN,URINE NEGATIVE mg/dL (<2.0)
[2019-06-15] MEDS ORDERED: INFLUENZA QUAD (6MOS+) 2019-20 VAC 0.5 ML SYR IM ONE (18:12)
--- NOTE | 2019-06-15 18:48 | EKG REPORT ---
SEVERITY:- ABNORMAL ECG - SINUS RHYTHM INCOMPLETE RIGHT BUNDLE BRANCH BLOCK : Confirmed by: Vikash Francisco 15-Jun-2019 18:47:17
[2019-06-15] MEDS: RINGERS SOLUTION,LACTATED 1,000 ML IV PRN (21:33)
[2019-06-15] MEDS: HEPARIN SOD (PORCINE) 5,000 UNIT/ML 1 ML VIAL SUBCUT SCH (21:38)
[2019-06-16] MEDS: MORPHINE SULFATE 10 MG/ML INJ IV PRN ×6 (00:14→16:43)
[2019-06-16] MEDS: HEPARIN SOD (PORCINE) 5,000 UNIT/ML 1 ML VIAL SUBCUT SCH ×3 (05:05→21:36)
[2019-06-16 05:24] LABS: HEMATOCRIT 35.8 % (36.0-47.0); HEMOGLOBIN 12.2 g/dL (12.0-15.5); MEAN CORPUSCULAR HGB CONC 34.2 g/dL (32.0-36.0); MEAN CORPUSCULAR VOLUME 93 fl (80-97); PLATELET COUNT 109 10^3/uL (150-450); RED BLOOD COUNT 3.83 10^6/uL (3.72-5.28); RED CELL DISTRIBUTION WIDTH 14.2 % (11.5-14.0)
[2019-06-16 05:43] LABS: ANION GAP 5 (5-19); BLOOD UREA NITROGEN 29 mg/dL (7-20); CALCIUM 8.4 mg/dL (8.4-10.2); CARBON DIOXIDE 27 mmol/L (22-30); CHLORIDE 108 mmol/L (98-107); CREATINE KINASE 592 U/L (30-135); GLUCOSE 101 mg/dL (75-110); POTASSIUM 4.6 mmol/L (3.6-5.0)
--- NOTE | 2019-06-16 07:20 | PDOC CONSULTATION ---
Consultation Consult Date: 06/16/19 Provider Consulted: MELODIE REEDER Consult reason:: Right intratrochanteric femur fracture History of Present Illness Admission Date/PCP: 06/15/19 16:11 MELIZA IBARRA PA-C History of Present Illness: CASIE KINSEY is a 88 year old female Patient is an 88-year-old white female with a noncontributory past medical history who fell and was unable to weight-bear. She is brought to the emergency room where a right intratrochanteric femur fracture was identified. She is admitted to the hospital service and orthopedics is consulted for fracture management. Past Medical History Cardiac Medical History: Reports: None Pulmonary Medical History: Reports: Chronic Obstructive Pulmonary Disease (COPD) GI Medical History: Reports: Gastroesophageal Reflux Disease Psychiatric Medical History: Reports: Other Past Surgical History Past Surgical History: Reports: Tubal Ligation Social History Information Source: Patient Smoking Status: Former Smoker Electronic Cigarette use?: No Frequency of Alcohol Use: None Hx Recreational Drug Use: No Drugs: None Family History Family History: Reviewed & Not Pertinent Parental Family History Reviewed: No Children Family History Reviewed: No Sibling(s) Family History Reviewed.: No Medication/Allergy Home Medications: Donepezil HCl 10 mg PO DAILY 06/15/19 Memantine HCl [Namenda] 5 mg PO BID 06/15/19 Allergies/Adverse Reactions: No Known Allergies Allergy (Verified 03/21/18 09:38) Review of Systems ROS unobtainable: Due to mental status Physical Exam Vital Signs: Temp Pulse Resp BP Pulse Ox 36.8 C 76 22 H 110/61 100 06/16/19 00:11 06/16/19 00:11 06/16/19 00:11 06/16/19 00:11 06/16/19 00:11 Intake & Output 06/15/19 06/16/19 06/17/19 06:59 06:59 06:59 Intake Total 1230 Output Total 640 Balance 590 Weight 55.2 kg Physical Exam: Relatively thin elderly white female lying in hospital bed. Patient is quite uncomfortable complaining of right hip pain. She states that she is never had a broken bone in her life. General appearance: PRESENT: mild distress, severe distress Head exam: PRESENT: normocephalic Respiratory exam: PRESENT: unlabored Cardiovascular exam: PRESENT: RRR Pulses: PRESENT: +1 pedal pulses bilateral GI/Abdominal exam: PRESENT: soft Rectal exam: PRESENT: deferred Extremities exam: PRESENT: other - Right lower extremity externally rotated and shortened. There is brisk capillary refill. Motor function a great toe flexion extension is intact. Neurological exam: PRESENT: awake, oriented to situation Skin exam: PRESENT: dry, intact, warm. ABSENT: cyanosis, rash Results Laboratory Results: 06/16/19 05:00 06/16/19 05:00 06/15/19 06/15/19 06/15/19 14:51 14:51 16:40 WBC 12.4 H RBC 4.29 Hgb 13.8 Hct 39.9 MCV 93 MCH 32.1 MCHC 34.5 RDW 13.8 Plt Count 143 L Seg Neutrophils % Not Reportable Sodium 139.3 Potassium 4.3 Chloride 102 Carbon Dioxide 26 Anion Gap 11 BUN 27 H Creatinine 0.92 Est GFR ( Amer) > 60 Glucose 136 H Calcium 9.4 Total Bilirubin 1.2 AST 64 H Alkaline Phosphatase 133 H Total Protein 7.2 Albumin 3.7 Urine Color PRISCILA Urine Appearance CLEAR Urine pH 5.0 Ur Specific [place] 1.028 Urine Protein 30 H Urine Glucose (UA) NEGATIVE Urine Ketones TRACE H Urine Blood SMALL H Urine RBC (Auto) 4 06/16/19 06/16/19 05:00 05:00 WBC 11.0 H RBC 3.83 Hgb 12.2 Hct 35.8 L MCV 93 MCH 32.0 MCHC 34.2 RDW 14.2 H Plt Count 109 L Seg Neutrophils % Sodium 139.8 Potassium 4.6 Chloride 108 H Carbon Dioxide 27 Anion Gap 5 BUN 29 H Creatinine 0.88 Est GFR ( Amer) > 60 Glucose 101 Calcium 8.4 Total Bilirubin AST Alkaline Phosphatase Total Protein Albumin Urine Color Urine Appearance Urine pH Ur Specific [place] Urine Protein Urine Glucose (UA) Urine Ketones Urine Blood Urine RBC (Auto) 06/15/19 06/16/19 14:51 05:00 Creatine Kinase 1065 H 592 H Impressions: Hip/Pelvis X-Ray 06/15/19 00:00 IMPRESSION: Low intertrochanteric fracture of the right hip. Status: Imported from PACS Assessment & Plan - Diagnosis (1) Intertrochanteric fracture of femur Qualifiers: Encounter type: initial encounter Fracture type: closed Laterality: right Is this a current diagnosis for this admission?: Yes Plan: Plan for open reduction internal fixation following medical evaluation and obtaining the necessary surgical consents from the patient's son who has power of crane chaser. - Time Time Spent: 50 to 70 Minutes Anticipated discharge: SNF Within: Other
[2019-06-16] MEDS: RINGERS SOLUTION,LACTATED 1,000 ML IV PRN ×2 (08:34→23:27)
--- NOTE | 2019-06-16 14:49 | PDOC PROGRESS REPORT ---
Subjective Progress Note for:: 06/16/19 Subjective:: No adverse events overnight. Still having a lot of pain. We had to increase the frequency of her morphine and thus far it seems to be helping. We were told that she would not be able to have surgery until Friday. Reason For Visit: RUGHT FEMORAL FRACTURE Physical Exam Vital Signs: Temp Pulse Resp BP Pulse Ox 98.2 F 73 22 H 110/63 99 06/16/19 12:02 06/16/19 12:02 06/16/19 12:02 06/16/19 12:02 06/16/19 12:02 Intake & Output 06/15/19 06/16/19 06/17/19 06:59 06:59 06:59 Intake Total 1230 1000 Output Total 640 100 Balance 590 900 Weight 55.2 kg General appearance: PRESENT: cooperative, disheveled Respiratory exam: PRESENT: clear to auscultation jhon, symmetrical, unlabored. ABSENT: accessory muscle use, chest wall tenderness, crackles, prolonged expiratory phas, retraction, rhonchi, tachypnea, wheezes Cardiovascular exam: PRESENT: RRR, +S1, +S2 Pulses: PRESENT: normal carotid pulses Vascular exam: PRESENT: normal capillary refill GI/Abdominal exam: PRESENT: normal bowel sounds, soft. ABSENT: distended, guarding, rebound, tenderness Extremities exam: ABSENT: clubbing, pedal edema Musculoskeletal exam: PRESENT: deformity - Right hip swelling, tenderness - Right hip Neurological exam: PRESENT: alert, awake, oriented to person. ABSENT: oriented to place, oriented to time, oriented to situation Skin exam: PRESENT: dry, warm Results Laboratory Results: 06/16/19 05:00 06/16/19 05:00 06/15/19 06/15/19 06/15/19 14:51 14:51 16:40 WBC 12.4 H RBC 4.29 Hgb 13.8 Hct 39.9 MCV 93 MCH 32.1 MCHC 34.5 RDW 13.8 Plt Count 143 L Seg Neutrophils % Not Reportable Sodium 139.3 Potassium 4.3 Chloride 102 Carbon Dioxide 26 Anion Gap 11 BUN 27 H Creatinine 0.92 Est GFR ( Amer) > 60 Glucose 136 H Calcium 9.4 Total Bilirubin 1.2 AST 64 H Alkaline Phosphatase 133 H Total Protein 7.2 Albumin 3.7 Urine Color PRISCILA Urine Appearance CLEAR Urine pH 5.0 Ur Specific [place] 1.028 Urine Protein 30 H Urine Glucose (UA) NEGATIVE Urine Ketones TRACE H Urine Blood SMALL H Urine RBC (Auto) 4 06/16/19 06/16/19 05:00 05:00 WBC 11.0 H RBC 3.83 Hgb 12.2 Hct 35.8 L MCV 93 MCH 32.0 MCHC 34.2 RDW 14.2 H Plt Count 109 L Seg Neutrophils % Sodium 139.8 Potassium 4.6 Chloride 108 H Carbon Dioxide 27 Anion Gap 5 BUN 29 H Creatinine 0.88 Est GFR ( Amer) > 60 Glucose 101 Calcium 8.4 Total Bilirubin AST Alkaline Phosphatase Total Protein Albumin Urine Color Urine Appearance Urine pH Ur Specific [place] Urine Protein Urine Glucose (UA) Urine Ketones Urine Blood Urine RBC (Auto) 06/15/19 06/16/19 14:51 05:00 Creatine Kinase 1065 H 592 H Impressions: Hip/Pelvis X-Ray 06/15/19 00:00 IMPRESSION: Low intertrochanteric fracture of the right hip. Assessment and Plan - Diagnosis (1) Right femoral fracture Qualifiers: Encounter type: initial encounter Femur location: intertrochanteric Fracture type: closed Fracture alignment: displaced Qualified Code(s): S72.141A - Displaced intertrochanteric fracture of right femur, initial encounter for closed fracture Is this a current diagnosis for this admission?: Yes Plan: We continue with pain control. We will press to get her surgery done sooner bec ause she is very uncomfortable. After surgery, we will have to sort out her social situation because it sounds like she was not in a very good living situation when she was brought in. - Time Time Spent with patient: 15-24 minutes
[2019-06-17] MEDS: MORPHINE SULFATE 10 MG/ML INJ IV PRN ×3 (05:30→22:12)
[2019-06-17] MEDS ORDERED: HALOPERIDOL LACTATE INJ 5 MG/1 ML VIAL ONE (05:55)
[2019-06-17] MEDS: HALOPERIDOL LACTATE INJ 5 MG/1 ML VIAL IV PRN (06:00)
--- NOTE | 2019-06-17 07:01 | PDOC PROGRESS REPORT ---
Subjective Progress Note for:: 06/17/19 Reason For Visit: RUGHT FEMORAL FRACTURE 88-year-old white female with a right intratrochanteric femur fracture awaiting ORIF. Mental status changes last night requiring administration of Haldol. Physical Exam Vital Signs: Temp Pulse Resp BP Pulse Ox 36.9 C 81 20 144/64 H 97 06/16/19 23:25 06/16/19 23:25 06/16/19 23:25 06/16/19 23:25 06/16/19 23:25 Intake & Output 06/15/19 06/16/19 06/17/19 06:59 06:59 06:59 Intake Total 1230 2500 Output Total 640 680 Balance 590 1820 Weight 55.2 kg 55.6 kg Physical Exam: Elderly white female lying in a hospital bed. Patient is awake but does not interact. General appearance: PRESENT: mild distress Respiratory exam: PRESENT: unlabored Cardiovascular exam: PRESENT: RRR Pulses: PRESENT: +1 pedal pulses bilateral Vascular exam: PRESENT: normal capillary refill GI/Abdominal exam: PRESENT: soft Rectal exam: PRESENT: deferred Extremities exam: PRESENT: other - Lower extremities actually rotated and shortened. Results Laboratory Results: 06/15/19 06/16/19 14:51 05:00 Creatine Kinase 1065 H 592 H Impressions: Hip/Pelvis X-Ray 06/15/19 00:00 IMPRESSION: Low intertrochanteric fracture of the right hip. Status: Imported from PACS Assessment & Plan - Diagnosis (1) Intertrochanteric fracture of femur Qualifiers: Encounter type: initial encounter Fracture type: closed Laterality: right Is this a current diagnosis for this admission?: Yes Plan: Plan for ORIF right intratrochanteric femur fracture tomorrow morning with gamma nail - Time Time Spent with patient: 15-24 minutes Anticipated discharge: SNF Within: Other
[2019-06-17 07:16] LABS: HEMATOCRIT 34.4 % (36.0-47.0); HEMOGLOBIN 11.8 g/dL (12.0-15.5); MEAN CORPUSCULAR HEMOGLOBIN 32.3 pg (27.0-33.4); MEAN CORPUSCULAR HGB CONC 34.4 g/dL (32.0-36.0); MEAN CORPUSCULAR VOLUME 94 fl (80-97); PLATELET COUNT 115 10^3/uL (150-450); RED BLOOD COUNT 3.66 10^6/uL (3.72-5.28); RED CELL DISTRIBUTION WIDTH 14.3 % (11.5-14.0); WHITE BLOOD COUNT 9.4 10^3/uL (4.0-10.5)
[2019-06-17] MEDS: HEPARIN SOD (PORCINE) 5,000 UNIT/ML 1 ML VIAL SUBCUT SCH ×3 (07:29→22:24)
[2019-06-17 07:30] LABS: ANION GAP 6 (5-19); BLOOD UREA NITROGEN 26 mg/dL (7-20); CALCIUM 8.4 mg/dL (8.4-10.2); CARBON DIOXIDE 29 mmol/L (22-30); CHLORIDE 105 mmol/L (98-107); GLUCOSE 71 mg/dL (75-110); POTASSIUM 4.5 mmol/L (3.6-5.0)
[2019-06-17] MEDS: RINGERS SOLUTION,LACTATED 1,000 ML IV PRN ×2 (08:46→18:55)
[2019-06-17] MEDS: DONEPEZIL HCL 5 MG TABLET PO SCH (13:32)
--- NOTE | 2019-06-17 16:26 | PDOC PROGRESS REPORT ---
Subjective Progress Note for:: 06/17/19 Subjective:: No adverse events overnight. Her pain control seems to be improved. She got a dose of Haldol last night because she got extremely agitated. Reason For Visit: RUGHT FEMORAL FRACTURE Physical Exam Vital Signs: Temp Pulse Resp BP Pulse Ox 97.9 F 65 18 138/54 H 95 06/17/19 11:36 06/17/19 11:36 06/17/19 11:36 06/17/19 11:36 06/17/19 11:36 Intake & Output 06/16/19 06/17/19 06/18/19 06:59 06:59 06:59 Intake Total 1230 2500 1170 Output Total 640 680 300 Balance 590 1820 870 Weight 55.2 kg 55.6 kg General appearance: PRESENT: cooperative, disheveled Respiratory exam: PRESENT: clear to auscultation jhon, symmetrical, unlabored. ABSENT: accessory muscle use, chest wall tenderness, crackles, prolonged expiratory phas, retraction, rhonchi, tachypnea, wheezes Cardiovascular exam: PRESENT: RRR, +S1, +S2 Pulses: PRESENT: normal carotid pulses Vascular exam: PRESENT: normal capillary refill GI/Abdominal exam: PRESENT: normal bowel sounds, soft. ABSENT: distended, guarding, rebound, tenderness Extremities exam: ABSENT: clubbing, pedal edema Musculoskeletal exam: PRESENT: deformity - Right hip swelling, tenderness - Right hip Neurological exam: PRESENT: alert, awake, oriented to person. ABSENT: oriented to place, oriented to time, oriented to situation Skin exam: PRESENT: dry, warm Results Laboratory Results: 06/17/19 05:55 06/17/19 05:50 06/17/19 06/17/19 05:50 05:55 WBC 9.4 RBC 3.66 L Hgb 11.8 L Hct 34.4 L MCV 94 MCH 32.3 MCHC 34.4 RDW 14.3 H Plt Count 115 L Sodium 139.6 Potassium 4.5 Chloride 105 Carbon Dioxide 29 Anion Gap 6 BUN 26 H Creatinine 0.79 Est GFR ( Amer) > 60 Glucose 71 L Calcium 8.4 06/15/19 06/16/19 14:51 05:00 Creatine Kinase 1065 H 592 H Impressions: Hip/Pelvis X-Ray 06/15/19 00:00 IMPRESSION: Low intertrochanteric fracture of the right hip. Assessment and Plan - Diagnosis (1) Right femoral fracture Qualifiers: Encounter type: initial encounter Femur location: intertrochanteric Fracture type: closed Fracture alignment: displaced Qualified Code(s): S72.141A - Displaced intertrochanteric fracture of right femur, initial encounter for closed fracture Is this a current diagnosis for this admission?: Yes Plan: We continue with pain control. Hopefully she can get her surgery early tomorrow. After surgery, we will have to sort out her social situation because it sounds like she was not in a very good living situation when she was brought in. (2) Dementia Qualifiers: Dementia type: Alzheimer's disease Alzheimer's disease onset: late-onset Dementia behavioral disturbance: without behavioral disturbance Qualified Code(s): G30.1 - Alzheimer's disease with late onset; F02.80 - Dementia in other diseases classified elsewhere without behavioral disturbance Is this a current diagnosis for this admission?: Yes Plan: We started her back on her Namenda and Aricept. Will use as needed medications for . - Time Time Spent with patient: 15-24 minutes
[2019-06-17] MEDS: MEMANTINE HCL 10 MG TABLET PO SCH (17:53)
[2019-06-18] MEDS: MEMANTINE HCL 10 MG TABLET PO SCH ×2 (05:12→17:50)
[2019-06-18] MEDS: HEPARIN SOD (PORCINE) 5,000 UNIT/ML 1 ML VIAL SUBCUT SCH ×3 (06:16→22:34)
[2019-06-18 06:47] LABS: HEMATOCRIT 32.9 % (36.0-47.0); HEMOGLOBIN 11.3 g/dL (12.0-15.5); MEAN CORPUSCULAR HGB CONC 34.2 g/dL (32.0-36.0); MEAN CORPUSCULAR VOLUME 94 fl (80-97); PLATELET COUNT 107 10^3/uL (150-450); RED BLOOD COUNT 3.52 10^6/uL (3.72-5.28); RED CELL DISTRIBUTION WIDTH 13.8 % (11.5-14.0); WHITE BLOOD COUNT 6.8 10^3/uL (4.0-10.5)
[2019-06-18 07:15] LABS: BLOOD UREA NITROGEN 20 mg/dL (7-20); CHLORIDE 103 mmol/L (98-107); GLUCOSE 80 mg/dL (75-110); POTASSIUM 4.1 mmol/L (3.6-5.0)
[2019-06-18 07:20] LABS: CARBON DIOXIDE 29 mmol/L (22-30)
[2019-06-18 07:28] LABS: ANION GAP 4 (5-19)
[2019-06-18] MEDS ORDERED: MIDAZOLAM 2 MG/2 ML INJ ONE (09:41)
[2019-06-18] MEDS ORDERED: FENTANYL CITRATE INJ/PF 100 MCG/2 ML AMPUL ONE (09:41)
[2019-06-18] MEDS ORDERED: PROPOFOL INJ 200 MG/20 ML VIAL IV ONE (09:41)
[2019-06-18] MEDS ORDERED: ONDANSETRON HCL INJ/PF 4 MG/2 ML SDV ONE (09:41)
[2019-06-18] MEDS ORDERED: BUPIVACAINE HCL 0.5%-EPI 1:200000 INJ/PF 30 ML VIAL ONE (09:45)
[2019-06-18] MEDS ORDERED: MEPERIDINE HCL/PF INJ 25 MG/1 ML DISP.SYRIN IV PRN (10:18)
[2019-06-18] MEDS ORDERED: PROMETHAZINE HCL INJ 25 MG/1 ML VIAL IV PRN (10:18)
[2019-06-18] MEDS ORDERED: OXYCODONE-ACETAMINOPHEN 5-325 MG TABLET PO PRN (10:18)
[2019-06-18] MEDS ORDERED: DIPHENHYDRAMINE HCL 50 MG/ML VIAL IV PRN (10:18)
[2019-06-18] MEDS ORDERED: MORPHINE SULFATE 10 MG/ML INJ IV PRN ×2 (10:18→13:00)
[2019-06-18] MEDS ORDERED: FENTANYL CITRATE INJ/PF 100 MCG/2 ML AMPUL IV PRN ×2 (10:18)
[2019-06-18] MEDS ORDERED: ONDANSETRON HCL INJ/PF 4 MG/2 ML SDV IV PRN (10:18)
[2019-06-18] MEDS ORDERED: CEFAZOLIN SODIUM 2 GM in DEXTROSE 5%-WATER 100 ML IV ONE (10:30)
--- NOTE | 2019-06-18 10:42 | Operative Report ---
Operative Report DATE OF SURGERY: 06/18/19 PREOPERATIVE DIAGNOSIS: Right intertrochanteric femur fracture OPERATION: Open reduction internal fixation right intratrochanteric femur fracture SURGEON: MELODIE REEDER ANESTHESIA: Spinal ESTIMATED BLOOD LOSS: 50 PROCEDURE: With the patient supine on the fracture table the right lower extremity was prepped and draped in sterile fashion. The limb is delayed under fluoroscopic guidance to effect a near anatomic reduction of the intertrochanteric fracture. Subsequently a pin is placed percutaneously through the greater trochanter down into the proximal metadiaphysis. A combined reamer was used to fashion a cortical opening. These were removed and a ball-tipped guide rods placed down the femoral canal. Length is measured to be 375 mm. Subsequently a [place] gamma 3 femoral nail, 360 mm x 130 degrees x 11 mm advanced over the ball-tipped guide hieu down to the appropriate depth for a proximal interlock. On 105 mm proximal interlock is placed. A 50 mm distal interlock is placed. The wounds are irrigated and closure was interrupted Vicryl followed by ayaan. Sterile compressive dressings were applied and the patient is returned to the PACU in satisfactory condition.
[2019-06-18] MEDS ORDERED: TRAMADOL HCL 50 MG TABLET PO PRN (11:18)
[2019-06-18] MEDS ORDERED: ACETAMINOPHEN 325 MG TABLET PO PRN (11:19)
--- NOTE | 2019-06-18 11:30 | RADIOLOGY REPORT (SQ) ---
EXAM DESCRIPTION: NO CHG FLUORO; HIP IN OPERATING RM COMPLETED DATE/TIME: 06/18/2019 11:12 am REASON FOR STUDY: ORIF RIGHT HIP ASSISTED WITH FLUORO IN OR COMPARISON: None. FLUOROSCOPY TIME: 0.9 minutes 4 Images saved to PACS LIMITATIONS: None. PROCEDURE: ORIF right hip FINDINGS: Images from fluoro document placement of a long medullary hieu in the femur and a long jose ulated screw through the femoral neck. IMPRESSION: ORIF right hip. Refer to operative note for further information. COMMENT: PQRS 6045F: Fluoroscopy time of the procedure is documented in the report. TECHNICAL DOCUMENTATION: JOB ID: [id number] 2010 [employer]- All Rights Reserved Reading location - IP/workstation name: [email or web address]
--- NOTE | 2019-06-18 11:30 | RADIOLOGY REPORT (SQ) ---
EXAM DESCRIPTION: NO CHG FLUORO; HIP IN OPERATING RM COMPLETED DATE/TIME: 06/18/2019 11:12 am REASON FOR STUDY: ORIF RIGHT HIP ASSISTED WITH FLUORO IN OR COMPARISON: None. FLUOROSCOPY TIME: 0.9 minutes 4 Images saved to PACS LIMITATIONS: None. PROCEDURE: ORIF right hip FINDINGS: Images from fluoro document placement of a long medullary hieu in the femur and a long jose ulated screw through the femoral neck. IMPRESSION: ORIF right hip. Refer to operative note for further information. COMMENT: PQRS 6045F: Fluoroscopy time of the procedure is documented in the report. TECHNICAL DOCUMENTATION: JOB ID: [id number] 2010 [employer]- All Rights Reserved Reading location - IP/workstation name: [email or web address]
[2019-06-18] MEDS ORDERED: MORPHINE SULFATE 10 MG/ML INJ IV SCH (12:00)
[2019-06-18] MEDS: ASPIRIN 81 MG TABLET, ENT COATED PO SCH (13:04)
[2019-06-18] MEDS: DONEPEZIL HCL 5 MG TABLET PO SCH (13:05)
[2019-06-18] MEDS ORDERED: CEFAZOLIN SODIUM 2 GM in DEXTROSE 5%-WATER 100 ML IV SCH (14:00)
--- NOTE | 2019-06-18 16:13 | PDOC PROGRESS REPORT ---
Subjective Progress Note for:: 06/18/19 Subjective:: No adverse events overnight. Her pain control seems to be adequate. She is awaiting surgery this morning. Reason For Visit: RUGHT FEMORAL FRACTURE Physical Exam Vital Signs: Temp Pulse Resp BP Pulse Ox 98.4 F 65 16 138/75 H 100 06/18/19 12:39 06/18/19 12:39 06/18/19 12:39 06/18/19 12:39 06/18/19 12:39 Intake & Output 06/17/19 06/18/19 06/19/19 06:59 06:59 06:59 Intake Total 2500 2512 1000 Output Total 680 700 775 Balance 1820 1812 225 Weight 55.6 kg 60.8 kg General appearance: PRESENT: cooperative, disheveled Respiratory exam: PRESENT: clear to auscultation jhon, symmetrical, unlabored. ABSENT: accessory muscle use, chest wall tenderness, crackles, prolonged expiratory phas, retraction, rhonchi, tachypnea, wheezes Cardiovascular exam: PRESENT: RRR, +S1, +S2 Pulses: PRESENT: normal carotid pulses Vascular exam: PRESENT: normal capillary refill GI/Abdominal exam: PRESENT: normal bowel sounds, soft. ABSENT: distended, guarding, rebound, tenderness Extremities exam: ABSENT: clubbing, pedal edema Musculoskeletal exam: PRESENT: deformity - Right hip swelling, tenderness - Right hip Neurological exam: PRESENT: Drowsy but arousable, oriented to person. ABSENT: oriented to place, oriented to time, oriented to situation Skin exam: PRESENT: dry, warm Results Laboratory Results: 06/18/19 06:05 06/18/19 06:05 06/18/19 06/18/19 06:05 06:05 WBC 6.8 RBC 3.52 L Hgb 11.3 L Hct 32.9 L MCV 94 MCH 32.0 MCHC 34.2 RDW 13.8 Plt Count 107 L Sodium 136.4 L Potassium 4.1 Chloride 103 Carbon Dioxide 29 Anion Gap 4 L BUN 20 Creatinine 0.70 Est GFR ( Amer) > 60 Glucose 80 Calcium 8.0 L 06/15/19 06/16/19 14:51 05:00 Creatine Kinase 1065 H 592 H Impressions: Hip/Pelvis X-Ray 06/15/19 00:00 IMPRESSION: Low intertrochanteric fracture of the right hip. Fluoroscopy 06/18/19 00:00 IMPRESSION: ORIF right hip. Refer to operative note for further information. Hip X-Ray 06/18/19 00:00 IMPRESSION: ORIF right hip. Refer to operative note for further information. Assessment and Plan - Diagnosis (1) Right femoral fracture Qualifiers: Encounter type: initial encounter Femur location: intertrochanteric Fracture type: closed Fracture alignment: displaced Qualified Code(s): S72.141A - Displaced intertrochanteric fracture of right femur, initial encounter for closed fracture Is this a current diagnosis for this admission?: Yes Plan: We continue with pain control. Going for surgery, will get weightbearing and activity recommendations from surgery for the postoperative period. After surgery, we will have to sort out her social situation because it sounds like she was not in a very good living situation when she was brought in. (2) Dementia Qualifiers: Dementia type: Alzheimer's disease Alzheimer's disease onset: late-onset Dementia behavioral disturbance: without behavioral disturbance Qualified Code(s): G30.1 - Alzheimer's disease with late onset; F02.80 - Dementia in other diseases classified elsewhere without behavioral disturbance Is this a current diagnosis for this admission?: Yes Plan: We started her back on her Namenda and Aricept. Will use as needed medications for sunding. - Time Time Spent with patient: 15-24 minutes
[2019-06-18] MEDS: TRAMADOL HCL 50 MG TABLET PO PRN (17:50)
[2019-06-18] MEDS: CEFAZOLIN SODIUM 2 GM in DEXTROSE 5%-WATER 100 ML IV SCH (17:51)
[2019-06-18] MEDS: RINGERS SOLUTION,LACTATED 1,000 ML IV PRN (21:11)
[2019-06-18] MEDS: HALOPERIDOL LACTATE INJ 5 MG/1 ML VIAL IV PRN (21:11)
[2019-06-19] MEDS: TRAMADOL HCL 50 MG TABLET PO PRN ×4 (00:29→23:42)
[2019-06-19] MEDS: ACETAMINOPHEN 325 MG TABLET PO PRN ×2 (00:30→23:42)
[2019-06-19] MEDS: CEFAZOLIN SODIUM 2 GM in DEXTROSE 5%-WATER 100 ML IV SCH (01:57)
[2019-06-19 06:05] LABS: ABSOLUTE EOSINOPHILS # (AUTO) 0.1 10^3/uL (0.0-0.6); ABSOLUTE LYMPHOCYTES (AUTO) 0.9 10^3/uL (0.5-4.7); ABSOLUTE MONOCYTES (AUTO) 0.7 10^3/uL (0.1-1.4); ABSOLUTE NEUT (AUTO) 5.5 10^3/uL (1.7-8.2); BASOPHILS % (AUTO) 0.2 % (0-2); HEMATOCRIT 30.3 % (36.0-47.0); HEMOGLOBIN 10.7 g/dL (12.0-15.5); MEAN CORPUSCULAR HEMOGLOBIN 32.7 pg (27.0-33.4); MEAN CORPUSCULAR HGB CONC 35.3 g/dL (32.0-36.0); MEAN CORPUSCULAR VOLUME 93 fl (80-97); MONOCYTES % (AUTO) 9.9 % (3-13); PLATELET COUNT 126 10^3/uL (150-450); RED BLOOD COUNT 3.28 10^6/uL (3.72-5.28); RED CELL DISTRIBUTION WIDTH 13.7 % (11.5-14.0); SEGMENTED NEUTROPHILS % (AUTO) 76.9 % (42-78); TOTAL CELLS COUNTED % (AUTO) 100 %; WHITE BLOOD COUNT 7.1 10^3/uL (4.0-10.5)
[2019-06-19] MEDS: HEPARIN SOD (PORCINE) 5,000 UNIT/ML 1 ML VIAL SUBCUT SCH ×3 (06:14→21:36)
[2019-06-19] MEDS: MEMANTINE HCL 10 MG TABLET PO SCH ×2 (06:16→17:23)
[2019-06-19 06:28] LABS: BLOOD UREA NITROGEN 14 mg/dL (7-20); CALCIUM 7.8 mg/dL (8.4-10.2); CARBON DIOXIDE 33 mmol/L (22-30); CHLORIDE 98 mmol/L (98-107); GLUCOSE 107 mg/dL (75-110)
[2019-06-19 06:38] LABS: ANION GAP 3 (5-19)
--- NOTE | 2019-06-19 08:13 | PDOC PROGRESS REPORT ---
Subjective Progress Note for:: 06/19/19 Reason For Visit: RUGHT FEMORAL FRACTURE 88-year-old white female now postoperative day 1 status post open reduction and fixation of a right intratrochanteric femur fracture. No events overnight. Physical Exam Vital Signs: Temp Pulse Resp BP Pulse Ox 36.7 C 87 17 154/87 H 94 06/18/19 23:09 06/18/19 23:09 06/18/19 23:09 06/18/19 23:09 06/18/19 23:09 Intake & Output 06/18/19 06/19/19 06/20/19 06:59 06:59 06:59 Intake Total 2512 2732 Output Total 700 2125 Balance 1812 607 Weight 60.8 kg 64.9 kg Physical Exam: Patient is more alert, oriented, and appropriate this morning. Respiratory exam: PRESENT: unlabored Cardiovascular exam: PRESENT: RRR Musculoskeletal exam: PRESENT: other - Right leg dressings clean dry and intact. Leg lengths equal. Distal neurovascular examination is intact. Results Laboratory Results: 06/19/19 05:47 06/19/19 05:47 06/19/19 06/19/19 05:47 05:47 WBC 7.1 RBC 3.28 L Hgb 10.7 L Hct 30.3 L MCV 93 MCH 32.7 MCHC 35.3 RDW 13.7 Plt Count 126 L Seg Neutrophils % 76.9 Sodium 134.2 L Potassium 4.0 Chloride 98 Carbon Dioxide 33 H Anion Gap 3 L BUN 14 Creatinine 0.65 Est GFR ( Amer) > 60 Glucose 107 Calcium 7.8 L 06/15/19 06/16/19 14:51 05:00 Creatine Kinase 1065 H 592 H Impressions: Hip/Pelvis X-Ray 06/15/19 00:00 IMPRESSION: Low intertrochanteric fracture of the right hip. Fluoroscopy 06/18/19 00:00 IMPRESSION: ORIF right hip. Refer to operative note for further information. Hip X-Ray 06/18/19 00:00 IMPRESSION: ORIF right hip. Refer to operative note for further information. Status: Imported from PACS Assessment & Plan - Diagnosis (1) Intertrochanteric fracture of femur Qualifiers: Encounter type: initial encounter Fracture type: closed Laterality: right Is this a current diagnosis for this admission?: Yes Plan: Mobilized with physical therapy and weightbearing as tolerated basis. Anticipate the need for [facility] facility placement. - Time Time Spent with patient: 15-24 minutes Anticipated discharge: Home with Homehealth Within: when bed available
[2019-06-19] MEDS: DONEPEZIL HCL 5 MG TABLET PO SCH (11:06)
[2019-06-19] MEDS: ASPIRIN 81 MG TABLET, ENT COATED PO SCH (11:06)
--- NOTE | 2019-06-19 13:53 | PDOC PROGRESS REPORT ---
Subjective Progress Note for:: 06/19/19 Subjective:: No adverse events overnight. She apparently ate pretty well postoperatively but has been sleeping a lot since then. She is not eaten anything this morning. Reason For Visit: RUGHT FEMORAL FRACTURE Physical Exam Vital Signs: Temp Pulse Resp BP Pulse Ox 98.3 F 72 17 133/74 H 100 06/19/19 11:54 06/19/19 11:54 06/19/19 11:54 06/19/19 11:54 06/19/19 11:54 Intake & Output 06/18/19 06/19/19 06/20/19 06:59 06:59 06:59 Intake Total 2512 2732 Output Total 700 2125 325 Balance 1812 607 -325 Weight 60.8 kg 64.9 kg General appearance: PRESENT: cooperative, disheveled Respiratory exam: PRESENT: clear to auscultation jhon, symmetrical, unlabored. ABSENT: accessory muscle use, chest wall tenderness, crackles, prolonged expiratory phas, retraction, rhonchi, tachypnea, wheezes Cardiovascular exam: PRESENT: RRR, +S1, +S2 Pulses: PRESENT: normal carotid pulses Vascular exam: PRESENT: normal capillary refill GI/Abdominal exam: PRESENT: normal bowel sounds, soft. ABSENT: distended, g uarding, rebound, tenderness Extremities exam: ABSENT: clubbing, pedal edema Musculoskeletal exam: PRESENT: Surgical incision on right hip is cleanly bandaged, tenderness - Right hip Neurological exam: PRESENT: Drowsy but arousable, oriented to person. ABSENT: oriented to place, oriented to time, oriented to situation Skin exam: PRESENT: dry, warm Results Laboratory Results: 06/19/19 05:47 06/19/19 05:47 06/19/19 06/19/19 05:47 05:47 WBC 7.1 RBC 3.28 L Hgb 10.7 L Hct 30.3 L MCV 93 MCH 32.7 MCHC 35.3 RDW 13.7 Plt Count 126 L Seg Neutrophils % 76.9 Sodium 134.2 L Potassium 4.0 Chloride 98 Carbon Dioxide 33 H Anion Gap 3 L BUN 14 Creatinine 0.65 Est GFR ( Amer) > 60 Glucose 107 Calcium 7.8 L 06/15/19 06/16/19 14:51 05:00 Creatine Kinase 1065 H 592 H Impressions: Hip/Pelvis X-Ray 06/15/19 00:00 IMPRESSION: Low intertrochanteric fracture of the right hip. Fluoroscopy 06/18/19 00:00 IMPRESSION: ORIF right hip. Refer to operative note for further information. Hip X-Ray 06/18/19 00:00 IMPRESSION: ORIF right hip. Refer to operative note for further information. Assessment and Plan - Diagnosis (1) Right femoral fracture Qualifiers: Encounter type: initial encounter Femur location: intertrochanteric Fracture type: closed Fracture alignment: displaced Qualified Code(s): S72.141A - Displaced intertrochanteric fracture of right femur, initial encounter for closed fracture Is this a current diagnosis for this admission?: Yes Plan: We continue with pain control. Weightbearing and activity recommendations per orthopedics. We will have to sort out her social situation because it sounds like she was not in a very good living situation when she was brought in. (2) Dementia Qualifiers: Dementia type: Alzheimer's disease Alzheimer's disease onset: late-onset Dementia behavioral disturbance: without behavioral disturbance Qualified Code(s): G30.1 - Alzheimer's disease with late onset; F02.80 - Dementia in other diseases classified elsewhere without behavioral disturbance Is this a current diagnosis for this admission?: Yes Plan: We started her back on her Namenda and Aricept. Will use as needed medications for sundowning. - Time Time Spent with patient: 15-24 minutes
[2019-06-19] MEDS: RINGERS SOLUTION,LACTATED 1,000 ML IV PRN (14:25)
[2019-06-19] MEDS: POLYETHYLENE GLYCOL 3350 POWDER 17 GM/1 PACKET PO SCH (17:26)
[2019-06-20] MEDS: RINGERS SOLUTION,LACTATED 1,000 ML IV PRN ×2 (05:07→17:13)
[2019-06-20 05:49] LABS: BLOOD UREA NITROGEN 13 mg/dL (7-20); CALCIUM 7.8 mg/dL (8.4-10.2); GLUCOSE 92 mg/dL (75-110); POTASSIUM 4.3 mmol/L (3.6-5.0)
[2019-06-20] MEDS: TRAMADOL HCL 50 MG TABLET PO PRN ×2 (05:51→18:09)
[2019-06-20] MEDS: MEMANTINE HCL 10 MG TABLET PO SCH ×2 (05:51→17:12)
[2019-06-20] MEDS: HEPARIN SOD (PORCINE) 5,000 UNIT/ML 1 ML VIAL SUBCUT SCH ×3 (05:55→21:17)
[2019-06-20 05:58] LABS: CARBON DIOXIDE 34 mmol/L (22-30); CHLORIDE 100 mmol/L (98-107)
[2019-06-20 06:02] LABS: ANION GAP 0 (5-19)
--- NOTE | 2019-06-20 07:48 | PDOC PROGRESS REPORT ---
Subjective Progress Note for:: 06/20/19 Reason For Visit: RUGHT FEMORAL FRACTURE 88-year-old white female now postop day 2 status post ORIF of a right intratrochanteric femur fracture. Patient is not yet been out of bed. Physical Exam Vital Signs: Temp Pulse Resp BP Pulse Ox 36.3 C 73 16 145/79 H 100 06/19/19 23:42 06/19/19 23:42 06/19/19 23:42 06/19/19 23:42 06/19/19 23:42 Intake & Output 06/19/19 06/20/19 06/21/19 06:59 06:59 06:59 Intake Total 3136 1338 Output Total 2125 325 Balance 1011 1013 Weight 64.9 kg 65.8 kg General appearance: PRESENT: no acute distress Respiratory exam: PRESENT: unlabored Cardiovascular exam: PRESENT: RRR Pulses: PRESENT: +1 pedal pulses bilateral GI/Abdominal exam: PRESENT: soft Musculoskeletal exam: PRESENT: other - Right lower extremity dressings clean dry and intact. Leg lengths are equal. Distal neurovascular examination is intact. Results Laboratory Results: 06/19/19 05:47 06/20/19 05:21 06/20/19 05:21 Sodium 134.0 L Potassium 4.3 Chloride 100 Carbon Dioxide 34 H Anion Gap 0 L BUN 13 Creatinine 0.57 Est GFR ( Amer) > 60 Glucose 92 Calcium 7.8 L 06/15/19 06/16/19 14:51 05:00 Creatine Kinase 1065 H 592 H Impressions: Hip/Pelvis X-Ray 06/15/19 00:00 IMPRESSION: Low intertrochanteric fracture of the right hip. Fluoroscopy 06/18/19 00:00 IMPRESSION: ORIF right hip. Refer to operative note for further information. Hip X-Ray 06/18/19 00:00 IMPRESSION: ORIF right hip. Refer to operative note for further information. Status: Imported from PACS Assessment & Plan - Diagnosis (1) Intertrochanteric fracture of femur Qualifiers: Encounter type: initial encounter Fracture type: closed Laterality: right Is this a current diagnosis for this admission?: Yes Plan: Mobilized with physical therapy and weightbearing as tolerated basis as mental status allows - Time Time Spent with patient: 15-24 minutes Anticipated discharge: SNF Within: when bed available
[2019-06-20] MEDS: DONEPEZIL HCL 5 MG TABLET PO SCH (09:18)
[2019-06-20] MEDS: ASPIRIN 81 MG TABLET, ENT COATED PO SCH (09:18)
[2019-06-20] MEDS: POLYETHYLENE GLYCOL 3350 POWDER 17 GM/1 PACKET PO SCH (09:18)
[2019-06-20] MEDS ORDERED: POLYETHYLENE GLYCOL 3350 POWDER 17 GM/1 PACKET PO SCH (10:00)
--- NOTE | 2019-06-20 15:14 | PDOC PROGRESS REPORT ---
Subjective Progress Note for:: 06/20/19 Subjective:: No adverse events overnight. She is more awake today. She is not been eating very well. Vital signs been stable. Pain seems to be well controlled. Reason For Visit: RUGHT FEMORAL FRACTURE Physical Exam Vital Signs: Temp Pulse Resp BP Pulse Ox 98.2 F 65 16 121/63 100 06/20/19 11:14 06/20/19 11:14 06/20/19 11:14 06/20/19 11:14 06/20/19 11:14 Intake & Output 06/19/19 06/20/19 06/21/19 06:59 06:59 06:59 Intake Total 3136 1338 237 Output Total 2125 325 100 Balance 1011 1013 137 Weight 64.9 kg 65.8 kg General appearance: PRESENT: cooperative, disheveled Respiratory exam: PRESENT: clear to auscultation jhon, symmetrical, unlabored. ABSENT: accessory muscle use, chest wall tenderness, crackles, prolonged expiratory phas, retraction, rhonchi, tachypnea, wheezes Cardiovascular exam: PRESENT: RRR, +S1, +S2 Pulses: PRESENT: normal carotid pulses Vascular exam: PRESENT: normal capillary refill GI/Abdominal exam: PRESENT: normal bowel sounds, soft. ABSENT: distended, guarding, rebound, tenderness Extremities exam: ABSENT: clubbing, pedal edema Musculoskeletal exam: PRESENT: Surgical incision on right hip is cleanly turner ged, tenderness - Right hip Neurological exam: PRESENT: Awake, oriented to person. ABSENT: oriented to place, oriented to time, oriented to situation Skin exam: PRESENT: dry, warm Results Laboratory Results: 06/19/19 05:47 06/20/19 05:21 06/20/19 05:21 Sodium 134.0 L Potassium 4.3 Chloride 100 Carbon Dioxide 34 H Anion Gap 0 L BUN 13 Creatinine 0.57 Est GFR ( Amer) > 60 Glucose 92 Calcium 7.8 L 06/15/19 06/16/19 14:51 05:00 Creatine Kinase 1065 H 592 H Impressions: Hip/Pelvis X-Ray 06/15/19 00:00 IMPRESSION: Low intertrochanteric fracture of the right hip. Fluoroscopy 06/18/19 00:00 IMPRESSION: ORIF right hip. Refer to operative note for further information. Hip X-Ray 06/18/19 00:00 IMPRESSION: ORIF right hip. Refer to operative note for further information. Assessment and Plan - Diagnosis (1) Right femoral fracture Qualifiers: Encounter type: initial encounter Femur location: intertrochanteric Fracture type: closed Fracture alignment: displaced Qualified Code(s): S72.141A - Displaced intertrochanteric fracture of right femur, initial encounter for closed fracture Is this a current diagnosis for this admission?: Yes Plan: We continue with pain control. Weightbearing and activity recommendations per orthopedics. We will have to sort out her social situation because it sounds like she was not in a very good living situation when she was brought in. She will need placement but I am concerned with how well she will do given the severity of her dementia. (2) Dementia Qualifiers: Dementia type: Alzheimer's disease Alzheimer's disease onset: late-onset Dementia behavioral disturbance: without behavioral disturbance Qualified Code(s): G30.1 - Alzheimer's disease with late onset; F02.80 - Dementia in other diseases classified elsewhere without behavioral disturbance Is this a current diagnosis for this admission?: Yes Plan: We started her back on her Namenda and Aricept. Will use as needed medications for . - Time Time Spent with patient: 15-24 minutes
[2019-06-21] MEDS: TRAMADOL HCL 50 MG TABLET PO PRN ×3 (00:10→23:02)
[2019-06-21] MEDS: ACETAMINOPHEN 325 MG TABLET PO PRN (00:11)
[2019-06-21] MEDS: RINGERS SOLUTION,LACTATED 1,000 ML IV PRN (06:19)
[2019-06-21] MEDS: HEPARIN SOD (PORCINE) 5,000 UNIT/ML 1 ML VIAL SUBCUT SCH ×2 (06:19→14:09)
[2019-06-21] MEDS: MEMANTINE HCL 10 MG TABLET PO SCH ×2 (06:19→17:06)
--- NOTE | 2019-06-21 07:15 | PDOC PROGRESS REPORT ---
Subjective Progress Note for:: 06/21/19 Reason For Visit: RUGHT FEMORAL FRACTURE Physical Exam Vital Signs: Temp Pulse Resp BP Pulse Ox 36.4 C 70 18 158/70 H 100 06/20/19 23:20 06/20/19 23:20 06/20/19 23:20 06/20/19 23:20 06/20/19 23:20 Intake & Output 06/20/19 06/21/19 06/22/19 06:59 06:59 06:59 Intake Total 1338 2752 Output Total 325 500 Balance 1013 2252 Weight 65.8 kg 65.2 kg General appearance: PRESENT: mild distress Respiratory exam: PRESENT: unlabored Cardiovascular exam: PRESENT: RRR Pulses: PRESENT: +1 pedal pulses bilateral Vascular exam: PRESENT: normal capillary refill Musculoskeletal exam: PRESENT: other - Right lower extremity dressings clean dry and intact. Leg lengths equal. Results Laboratory Results: 06/19/19 05:47 06/20/19 05:21 06/15/19 06/16/19 14:51 05:00 Creatine Kinase 1065 H 592 H Impressions: Hip/Pelvis X-Ray 06/15/19 00:00 IMPRESSION: Low intertrochanteric fracture of the right hip. Fluoroscopy 06/18/19 00:00 IMPRESSION: ORIF right hip. Refer to operative note for further information. Hip X-Ray 06/18/19 00:00 IMPRESSION: ORIF right hip. Refer to operative note for further information. Assessment & Plan - Diagnosis (1) Intertrochanteric fracture of femur Qualifiers: Encounter type: initial encounter Fracture type: closed Laterality: right Is this a current diagnosis for this admission?: Yes Plan: Mobilize with physical therapy on a weightbearing as tolerated basis - Time Time Spent with patient: 15-24 minutes Anticipated discharge: SNF Within: when bed available
[2019-06-21] MEDS: ASPIRIN 81 MG TABLET, ENT COATED PO SCH (09:25)
[2019-06-21] MEDS: POLYETHYLENE GLYCOL 3350 POWDER 17 GM/1 PACKET PO SCH (09:25)
[2019-06-21] MEDS: DONEPEZIL HCL 5 MG TABLET PO SCH (09:25)
--- NOTE | 2019-06-21 17:14 | PDOC PROGRESS REPORT ---
Subjective Progress Note for:: 06/21/19 Subjective:: No adverse events overnight. She is more awake today. She was sitting up in bed trying to read the newspaper but she was more just looking at it. She still does not know where she is. I think this is chronic for her. She was not in any distress. Her pain is well controlled. Oral intake has improved a little bit but is still not very good, only about 25% of her meals. Reason For Visit: RUGHT FEMORAL FRACTURE Physical Exam Vital Signs: Temp Pulse Resp BP Pulse Ox 97.4 F 75 19 145/68 H 93 06/21/19 15:06 06/21/19 15:06 06/21/19 15:06 06/21/19 15:06 06/21/19 15:06 Intake & Output 06/20/19 06/21/19 06/22/19 06:59 06:59 06:59 Intake Total 1338 2752 268 Output Total 325 500 Balance 1013 2252 268 Weight 65.8 kg 65.2 kg General appearance: PRESENT: cooperative, disheveled Respiratory exam: PRESENT: clear to auscultation jhon, symmetrical, unlabored. ABSENT: accessory muscle use, chest wall tenderness, crackles, prolonged expiratory phas, retraction, rhonchi, tachypnea, wheezes Cardiovascular exam: PRESENT: RRR, +S1, +S2 Pulses: PRESENT: normal carotid pulses Vascular exam: PRESENT: normal capillary refill GI/Abdominal exam: PRESENT: normal bowel sounds, soft. ABSENT: distended, guarding, rebound, tenderness Extremities exam: ABSENT: clubbing, pedal edema Musculoskeletal exam: PRESENT: Surgical incision on right hip is cleanly bandaged, tenderness - Right hip Neurological exam: PRESENT: Awake, oriented to person. ABSENT: oriented to place, oriented to time, oriented to situation Skin exam: PRESENT: dry, warm Results Laboratory Results: 06/19/19 05:47 06/20/19 05:21 06/15/19 06/16/19 14:51 05:00 Creatine Kinase 1065 H 592 H Impressions: Hip/Pelvis X-Ray 06/15/19 00:00 IMPRESSION: Low intertrochanteric fracture of the right hip. Fluoroscopy 06/18/19 00:00 IMPRESSION: ORIF right hip. Refer to operative note for further information. Hip X-Ray 06/18/19 00:00 IMPRESSION: ORIF right hip. Refer to operative note for further information. Assessment and Plan - Diagnosis (1) Right femoral fracture Qualifiers: Encounter type: initial encounter Femur location: intertrochanteric Fracture type: closed Fracture alignment: displaced Qualified Code(s): S72.141A - Displaced intertrochanteric fracture of right femur, initial encounter for closed fracture Is this a current diagnosis for this admission?: Yes Plan: Status post operative repair. Pain is well controlled. Physical therapy has seen her and she is basically max assist with everything. She will need placement, possibly long-term. (2) Dementia Qualifiers: Dementia type: Alzheimer's disease Alzheimer's disease onset: late-onset Dementia behavioral disturbance: without behavioral disturbance Qualified Code(s): G30.1 - Alzheimer's disease with late onset; F02.80 - Dementia in other diseases classified elsewhere without behavioral disturbance Is this a current diagnosis for this admission?: Yes Plan: We started her back on her Namenda and Aricept. Will use as needed medications for sundowning. - Time Time Spent with patient: 15-24 minutes
[2019-06-22] MEDS: HEPARIN SOD (PORCINE) 5,000 UNIT/ML 1 ML VIAL SUBCUT SCH ×4 (01:35→21:20)
[2019-06-22] MEDS: MEMANTINE HCL 10 MG TABLET PO SCH ×2 (05:04→18:13)
[2019-06-22] MEDS: DONEPEZIL HCL 5 MG TABLET PO SCH (09:08)
[2019-06-22] MEDS: ASPIRIN 81 MG TABLET, ENT COATED PO SCH (09:09)
[2019-06-22] MEDS: POLYETHYLENE GLYCOL 3350 POWDER 17 GM/1 PACKET PO SCH (09:09)
[2019-06-22] MEDS: TRAMADOL HCL 50 MG TABLET PO PRN (12:55)
--- NOTE | 2019-06-22 17:05 | PDOC PROGRESS REPORT ---
Subjective Progress Note for:: 06/22/19 Subjective:: 06/22/2019. No acute events overnight. Patient pending placement. Reason For Visit: RUGHT FEMORAL FRACTURE Physical Exam Vital Signs: Temp Pulse Resp BP Pulse Ox 98.1 F 73 14 124/73 93 06/22/19 11:15 06/22/19 11:15 06/22/19 11:15 06/22/19 11:15 06/22/19 11:15 Intake & Output 06/21/19 06/22/19 06/23/19 06:59 06:59 06:59 Intake Total 2752 1728 Output Total 500 Balance 2252 1728 Weight 65.2 kg 64.6 kg General appearance: PRESENT: no acute distress, well-developed, well-nourished Head exam: PRESENT: atraumatic, normocephalic Respiratory exam: PRESENT: clear to auscultation jhon. ABSENT: rales, rhonchi, wheezes Cardiovascular exam: PRESENT: RRR. ABSENT: diastolic murmur, rubs, systolic murmur GI/Abdominal exam: PRESENT: normal bowel sounds, soft. ABSENT: distended, guarding, mass, organolmegaly, rebound, tenderness Neurological exam: PRESENT: alert, awake, oriented to person, oriented to place, CN II-XII grossly intact. ABSENT: motor sensory deficit Results Laboratory Results: 06/19/19 05:47 06/20/19 05:21 06/15/19 06/16/19 14:51 05:00 Creatine Kinase 1065 H 592 H Impressions: Hip/Pelvis X-Ray 06/15/19 00:00 IMPRESSION: Low intertrochanteric fracture of the right hip. Fluoroscopy 06/18/19 00:00 IMPRESSION: ORIF right hip. Refer to operative note for further information. Hip X-Ray 06/18/19 00:00 IMPRESSION: ORIF right hip. Refer to operative note for further information. Assessment and Plan - Diagnosis (1) Right femoral fracture Qualifiers: Encounter type: initial encounter Femur location: intertrochanteric Fracture type: closed Fracture alignment: displaced Qualified Code(s): S72.141A - Displaced intertrochanteric fracture of right femur, initial encounter for closed fracture Is this a current diagnosis for this admission?: Yes Plan: Status post operative repair. Pain is well controlled. Physical therapy has seen her and she is basically max assist with everything. She will need placement, possibly long-term. (2) Dementia Qualifiers: Dementia type: Alzheimer's disease Alzheimer's disease onset: late-onset Dementia behavioral disturbance: without behavioral disturbance Qualified Code(s): G30.1 - Alzheimer's disease with late onset; F02.80 - Dementia in other diseases classified elsewhere without behavioral disturbance Is this a current diagnosis for this admission?: Yes Plan: Continue Namenda and Aricept. Monitor for fall and seizure. Patient PCP and neurology follow-up.
[2019-06-23] MEDS: HEPARIN SOD (PORCINE) 5,000 UNIT/ML 1 ML VIAL SUBCUT SCH ×2 (05:29→13:32)
[2019-06-23] MEDS: MEMANTINE HCL 10 MG TABLET PO SCH (05:31)
[2019-06-23] MEDS: DONEPEZIL HCL 5 MG TABLET PO SCH (10:00)
[2019-06-23] MEDS: POLYETHYLENE GLYCOL 3350 POWDER 17 GM/1 PACKET PO SCH (10:00)
[2019-06-23] MEDS: ASPIRIN 81 MG TABLET, ENT COATED PO SCH (10:00)
[2019-06-23 11:07] VITALS: BP 135/67
--- NOTE | 2019-06-23 11:56 | PDOC TRANSFER SUMMARY ---
Impression - Admit/DC Date/PCP Admission Date/Primary Care Provider: 06/15/19 16:11 MELIZA IBARRA PA-C Discharge Date: 06/23/19 - Discharge Diagnosis (1) Right femoral fracture Is this a current diagnosis for this admission?: Yes (2) Dementia Is this a current diagnosis for this admission?: Yes - Additional Information Resuscitation Status: Full Code Referrals: [facility] [Outside] MELODIE REEDER MD [ACTIVE STAFF] - 06/30/19 1:45 pm Home Medications: Donepezil HCl 10 mg PO DAILY 06/15/19 Memantine HCl [Namenda] 5 mg PO BID 06/15/19 History of Present Illiness History of Present Illness: As per admitting physicians note CASIE KINSEY is a 88 year old female who was found down in her bathroom in her home by her son. It is not known how long she was down. EMS was called and I am getting this as a third or fourth democrat report, but apparently the home situation is extremely filthy. She is in her dwelling apparently by herself and her son comes to check on her periodically. She is brought to the emergency room and she was had feces on her feet and the rest of her lower extremities. She was in a lot of discomfort and they were able to get x-rays of her pelvis and hips that showed a right intertrochanteric femur fracture. They try to get plain films of her lower back but between her mental status which consists of some baseline dementia I suspect, and her pain, they were unable to lay her flat to get images of her lumbar spine. Her CK was little bit elevated at just over 1000. She is being admitted for further evaluation and management. Hospital Course Hospital Course: (1) Right femoral fracture Right intertrochanteric femur fracture s/p open reduction internal fixation right intratrochanteric femur fracture Pain is well controlled. Wound looks clean. Right lower extremity neurovascularly intact. Received PT OT in the hospital. Continue PT OT. Outpatient follow-up with Dr. Reeder. (2) Dementia Continue Namenda and Aricept. Monitor for fall and seizure. Patient PCP and neurology follow-up. Physical Exam Vital Signs: Temp Pulse Resp BP Pulse Ox 98.2 F 73 12 135/67 H 95 06/23/19 07:38 06/23/19 07:38 06/23/19 07:38 06/23/19 07:38 06/23/19 07:38 Intake & Output 06/22/19 06/23/19 06/24/19 06:59 06:59 06:59 Intake Total 1728 900 Output Total 400 Balance 1728 500 Weight 64.6 kg 62.4 kg General appearance: PRESENT: no acute distress, well-developed, well-nourished Head exam: PRESENT: atraumatic, normocephalic Respiratory exam: PRESENT: clear to auscultation jhon. ABSENT: rales, rhonchi, wheezes Cardiovascular exam: PRESENT: RRR. ABSENT: diastolic murmur, rubs, systolic murmur GI/Abdominal exam: PRESENT: normal bowel sounds, soft. ABSENT: distended, guarding, mass, organolmegaly, rebound, tenderness Musculoskeletal exam: PRESENT: tenderness - Right hip tenderness, no erythema or discharge. No sign of infection. Neurological exam: PRESENT: alert, awake, oriented to person, oriented to place, CN II-XII grossly intact. ABSENT: motor sensory deficit Results Laboratory Results: WBC 7.1 10^3/uL (4.0-10.5) 06/19/19 05:47 RBC 3.28 10^6/uL (3.72-5.28) L 06/19/19 05:47 Hgb 10.7 g/dL (12.0-15.5) L 06/19/19 05:47 Hct 30.3 % (36.0-47.0) L 06/19/19 05:47 MCV 93 fl (80-97) 06/19/19 05:47 MCH 32.7 pg (27.0-33.4) 06/19/19 05:47 MCHC 35.3 g/dL (32.0-36.0) 06/19/19 05:47 RDW 13.7 % (11.5-14.0) 06/19/19 05:47 Plt Count 126 10^3/uL (150-450) L 06/19/19 05:47 Lymph % (Auto) 12.0 % (13-45) L 06/19/19 05:47 Davis % (Auto) 9.9 % (3-13) 06/19/19 05:47 Eos % (Auto) 1.0 % (0-6) 06/19/19 05:47 Baso % (Auto) 0.2 % (0-2) 06/19/19 05:47 Absolute Neuts (auto) 5.5 10^3/uL (1.7-8.2) 06/19/19 05:47 Absolute Lymphs (auto) 0.9 10^3/uL (0.5-4.7) 06/19/19 05:47 Absolute Monos (auto) 0.7 10^3/uL (0.1-1.4) 06/19/19 05:47 Absolute Eos (auto) 0.1 10^3/uL (0.0-0.6) 06/19/19 05:47 Absolute Basos (auto) 0.0 10^3/uL (0.0-0.2) 06/19/19 05:47 Total Counted 100 06/15/19 14:51 Seg Neutrophils % 76.9 % (42-78) 06/19/19 05:47 Seg Neuts % (Manual) 91 % (42-78) H 06/15/19 14:51 Lymphocytes % (Manual) 4 % (13-45) L 06/15/19 14:51 Atypical Lymphs % 1 % (0) 06/15/19 14:51 Monocytes % (Manual) 3 % (3-13) 06/15/19 14:51 Eosinophils % (Manual) 0 % (0-6) 06/15/19 14:51 Basophils % (Manual) 0 % (0-2) 06/15/19 14:51 Metamyelocytes % 1 % (0-1) 06/15/19 14:51 Abs Neuts (Manual) 11.4 10^3/uL (1.7-8.2) H 06/15/19 14:51 Abs Lymphs (Manual) 0.6 10^3/uL (0.5-4.7) 06/15/19 14:51 Abs Monocytes (Manual) 0.4 10^3/uL (0.1-1.4) 06/15/19 14:51 Absolute Eos (Manual) 0.0 10^3/uL (0.0-0.6) 06/15/19 14:51 Abs Basophils (Manual) 0.0 10^3/uL (0.0-0.2) 06/15/19 14:51 Large Platelets PRESENT 06/15/19 14:51 Platelet Comment ADEQUATE 06/15/19 14:51 Poikilocytosis SLIGHT 06/15/19 14:51 Tear Drop Cells SLIGHT 06/15/19 14:51 Ovalocytes SLIGHT 06/15/19 14:51 Sodium 134.0 mmol/L (137-145) L 06/20/19 05:21 Potassium 4.3 mmol/L (3.6-5.0) 06/20/19 05:21 Chloride 100 mmol/L (98-107) 06/20/19 05:21 Carbon Dioxide 34 mmol/L (22-30) H 06/20/19 05:21 Anion Gap 0 (5-19) L 06/20/19 05:21 BUN 13 mg/dL (7-20) 06/20/19 05:21 Creatinine 0.57 mg/dL (0.52-1.25) 06/20/19 05:21 Est GFR ( Amer) > 60 (>60) 06/20/19 05:21 Est GFR (MDRD) Non-Af > 60 (>60) 06/20/19 05:21 Glucose 92 mg/dL (75-110) 06/20/19 05:21 Calcium 7.8 mg/dL (8.4-10.2) L 06/20/19 05:21 Total Bilirubin 1.2 mg/dL (0.2-1.3) 06/15/19 14:51 Direct Bilirubin 0.3 mg/dL (0.0-0.4) 06/15/19 14:51 Neonat Total Bilirubin Not Reportable 06/15/19 14:51 Neonat Direct Bilirubin Not Reportable 06/15/19 14:51 Neonat Indirect Bili Not Reportable 06/15/19 14:51 AST 64 U/L (14-36) H 06/15/19 14:51 ALT 29 U/L (<35) 06/15/19 14:51 Alkaline Phosphatase 133 U/L (38-126) H 06/15/19 14:51 Creatine Kinase 592 U/L (30-135) H 06/16/19 05:00 Total Protein 7.2 g/dL (6.3-8.2) 06/15/19 14:51 Albumin 3.7 g/dL (3.5-5.0) 06/15/19 14:51 Urine Color PRISCILA 06/15/19 16:40 Urine Appearance CLEAR 06/15/19 16:40 Urine pH 5.0 (5.0-9.0) 06/15/19 16:40 Ur Specific [place] 1.028 06/15/19 16:40 Urine Protein 30 mg/dL (NEGATIVE) H 06/15/19 16:40 Urine Glucose (UA) NEGATIVE mg/dL (NEGATIVE) 06/15/19 16:40 Urine Ketones TRACE mg/dL (NEGATIVE) H 06/15/19 16:40 Urine Blood SMALL (NEGATIVE) H 06/15/19 16:40 Urine Nitrite (Reflex) NEGATIVE (NEGATIVE) 06/15/19 16:40 Urine Bilirubin NEGATIVE (NEGATIVE) 06/15/19 16:40 Urine Urobilinogen NEGATIVE mg/dL (<2.0) 06/15/19 16:40 Leukocyte Esterase Rfl NEGATIVE (NEGATIVE) 06/15/19 16:40 Urine RBC (Auto) 4 /HPF 06/15/19 16:40 U Hyaline Cast (Auto) 1 /LPF 06/15/19 16:40 Urine WBC (Reflex) 1 /HPF 06/15/19 16:40 Squamous Epi Cells Auto <1 /HPF 06/15/19 16:40 Urine Mucus (Auto) OCC /LPF 06/15/19 16:40 Urine Ascorbic Acid NEGATIVE (NEGATIVE) 06/15/19 16:40 Impressions: Hip/Pelvis X-Ray 06/15/19 00:00 IMPRESSION: Low intertrochanteric fracture of the right hip. Fluoroscopy 06/18/19 00:00 IMPRESSION: ORIF right hip. Refer to operative note for further information. Hip X-Ray 06/18/19 00:00 IMPRESSION: ORIF right hip. Refer to operative note for further information. Stroke Is this a Stroke Patient?: No Acute Heart Failure - Is this a Heart Failure Patient?: No
== END 2019-06-23 16:35 | DRG 482 ==
LOC: ER 11:53 → EH 16:11 → 4W 17:52 → 4S 06-17 16:19
PROVIDERS: ADMIT Family Medicine; ATTEND Family Medicine
PROC: 0QS606Z Reposition Right Upper Femur with Intramedullary Internal Fixation Device, Open Approach (ICD-10-PCS; principal; 2019-06-18 10:00)
DX: S72.141A Displaced intertrochanteric fracture of right femur, initial encounter for closed fracture (principal); W18.30XA Fall on same level, unspecified, initial encounter; G30.1 Alzheimer's disease with late onset; F02.80 Dementia in other diseases classified elsewhere, unspecified severity, without behavioral disturbance, psychotic disturbance, mood disturbance, and anxiety; Y92.002 Bathroom of unspecified non-institutional (private) residence as the place of occurrence of the external cause; J44.9 Chronic obstructive pulmonary disease, unspecified; K21.9 Gastro-esophageal reflux disease without esophagitis; Z60.2 Problems related to living alone; Z87.891 Personal history of nicotine dependence
CPT/HCPCS: 01230; 36415; 80048; 80053; 81001; 82550; 85025; 85027; 93005; 93010; 96374; 96376; 99285; J0690; J1630; J1644; J2250; J2270; J2405; J2704; J3010; J3490; J7030; J7060; J7120

== ENCOUNTER 2019-09-13 13:33 | Emergency (ER) | payer MEDICARE ==
--- NOTE | 2019-09-13 14:19 | ER Document Report ---
ED General - General Chief Complaint: Knee Pain Stated Complaint: R KNEE PAIN Time Seen by Provider: 09/13/19 13:55 Primary Care Provider: MELIZA IBARRA PA-C [Primary Care Provider] - Follow up tomorrow Mode of Arrival: Medic Information source: Patient Notes: 88-year-old female presented to ED via EMS. Her family went to the house to do a well check and they found the patient covered in feces. EMS states when they got to the house she was completely covered in feces and was unable to bear weight on her right knee which is tender to touch. Patient insisted she was feeling fine. Palpated both knees and she screamed out I palpated both ankles and she screamed out and then she stated she was fine she did not need anything. Patient can answer most questions appropriately but she does have a history of dementia and Alzheimer's. Family has requested that she not be sent back home because she is not able to care for herself and she lives alone. TRAVEL OUTSIDE OF THE [place] IN LAST 30 DAYS: No - HPI Onset: Other - Unsure patient states he has not fallen Quality of pain: No pain Severity: None Pain Level: Denies Associated symptoms: Other - Bruising to the left lower leg tenderness to both k nees and both ankles Exacerbated by: Standing, Movement, Walking Relieved by: Denies Similar symptoms previously: Yes Recently seen / treated by doctor: No - Related Data Allergies/Adverse Reactions: No Known Allergies Allergy (Verified 03/21/18 09:38) Past Medical History - General Information source: Patient, Emergency Med Personnel, [facility] Records - Social History Smoking Status: Never Smoker Chew tobacco use (# tins/day): No Frequency of alcohol use: None Drug Abuse: None Lives with: Alone Family History: Reviewed & Not Pertinent Patient has homicidal ideation: No - Past Medical History Cardiac Medical History: Reports: None Pulmonary Medical History: Reports: Hx COPD EENT Medical History: Reports: None Neurological Medical History: Reports: None Endocrine Medical History: Reports: None Renal/ Medical History: Reports: None Malignancy Medical History: Reports: None GI Medical History: Reports: Hx Gastroesophageal Reflux Disease Musculoskeletal Medical History: Reports Hx Arthritis, Reports Hx Musculoskeletal Deformity, Reports Hx Musculoskeletal Trauma Skin Medical History: Reports None Psychiatric Medical History: Reports: None, Hx Dementia, Other - Alzheimer's Traumatic Medical History: Reports: Hx Fractures Infectious Medical History: Reports: None Past Surgical History: Reports: Hx Gynecologic Surgery - UTERINE FIBROID, Hx Orthopedic Surgery - Hip, Hx Tubal Ligation - Immunizations Hx Diphtheria, Pertussis, Tetanus Vaccination: Yes Review of Systems - Review of Systems Constitutional: No symptoms reported EENT: No symptoms reported Cardiovascular: No symptoms reported Respiratory: No symptoms reported Gastrointestinal: No symptoms reported Genitourinary: No symptoms reported Female Genitourinary: No symptoms reported Musculoskeletal: Other - Tenderness to both knees and ankles to palpation Skin: No symptoms reported, Other - Bruising to left knee Hematologic/Lymphatic: No symptoms reported Neurological/Psychological: Dementia -: Yes All other systems reviewed and negative Physical Exam - Vital signs Vitals: Temp Pulse Resp BP Pulse Ox 97.5 F 70 16 124/70 98 09/13/19 13:41 09/13/19 13:41 09/13/19 13:41 09/13/19 13:41 09/13/19 13:41 Interpretation: Normal - General General appearance: Alert, Other - Very unkempt female who answers some questions appropriately. She had feces all over her aakash-area and on her legs. In distress: None - HEENT Head: Normocephalic, Atraumatic Eyes: Normal Pupils: PERRL - Respiratory Respiratory status: No respiratory distress Chest status: Nontender Breath sounds: Normal Chest palpation: Normal - Cardiovascular Rhythm: Regular Heart sounds: Normal auscultation Murmur: No - Abdominal Inspection: Normal Distension: No distension Bowel sounds: Normal Tenderness: Nontender Organomegaly: No organomegaly - Back Back: Normal, Nontender - Extremities General upper extremity: Normal inspection, Nontender, Normal color, Normal ROM, Normal temperature General lower extremity: Normal ROM, Normal temperature. No: April's sign Knee: Tender, Pain with ROM, Unable to bear weight Calf: Ecchymosis Ankle: Tender, Unable to bear weight. No: Abrasion, Deformity, Ecchymosis, Edema, Instability, Laceration, Limited ROM, Positive Higgins's test - Neurological Neuro grossly intact: Yes Cognition: Normal Orientation: AAOx4 [place] Coma Scale Eye Opening: Spontaneous [place] Coma Scale Verbal: Oriented Jovanna Coma Scale Motor: Obeys Commands [place] Coma Scale Total: 15 Speech: Normal Motor strength normal: LUE, RUE, LLE, RLE Sensory: Normal - Psychological Associated symptoms: Normal affect, Normal mood - Skin Skin Temperature: Warm Skin Moisture: Dry Skin Color: Normal Notes: Patient had dried hard feces to the bilateral legs rectal area vaginal area and abdomen on arrival to the ED. This is all been cleaned off. She does have bruising to the left knee and lower extremity. Course - Re-evaluation Re-evalutation: 09/13/19 18:57 Discussed x-ray with family. Son will come to pick her up and discharge her. She will have to follow-up with her primary care doctor for possible placement as I do not have a reason for admitting her to the hospital. Discharge consult was placed due to the condition she arrived to the emergency room as well as a call was placed by nursing to [facility] due to her condition when she arrived their facility. Patient does have home health at home and is in the charge of her son who is her POA. - Vital Signs Vital signs: Temp Pulse Resp BP Pulse Ox 98.2 F 65 17 116/64 99 09/13/19 18:44 09/13/19 18:44 09/13/19 18:44 09/13/19 18:44 09/13/19 18:44 - Laboratory Result Diagrams: 09/13/19 14:30 09/13/19 14:30 Laboratory results interpreted by me: 09/13/19 09/13/19 09/13/19 14:30 14:30 15:25 RDW 14.5 H Plt Count 120 L Potassium 3.4 L Chloride 109 H Anion Gap 1 L AST 39 H Alkaline Phosphatase 144 H Creatine Kinase 26 L Total Protein 6.2 L Albumin 2.9 L Urine Blood SMALL H Urine Urobilinogen 2.0 H - Diagnostic Test Radiology reviewed: Image reviewed, Reports reviewed Discharge - Discharge Clinical Impression: Acute right ankle pain Right knee pain Qualifiers: Chronicity: acute Qualified Code(s): M25.561 - Pain in right knee Condition: Stable Disposition: HOME, SELF-CARE Additional Instructions: Patient was seen today in the emergency room for right knee pain. X-rays do not show any fractures to the ankles or knees. There is no medical reason to admit the patient today This patient should not be left by herself. She needs to stay with somebody as she is unable to care for herself at home. FOLLOW-UP CARE: If you have been referred to a physician for follow-up care, call the physicians office for an appointment as you were instructed or within the next two days. If you experience worsening or a significant change in your symptoms, notify the physician immediately or return to the Emergency Department at any time for re-evaluation. Referrals: MELIZA IBARRA PA-C [Primary Care Provider] - Follow up tomorrow
[2019-09-13 14:37] LABS: ABSOLUTE EOSINOPHILS # (AUTO) 0.1 10^3/uL (0.0-0.6); ABSOLUTE LYMPHOCYTES (AUTO) 1.3 10^3/uL (0.5-4.7); ABSOLUTE MONOCYTES (AUTO) 0.4 10^3/uL (0.1-1.4); ABSOLUTE NEUT (AUTO) 2.7 10^3/uL (1.7-8.2); BASOPHILS % (AUTO) 0.5 % (0-2); EOSINOPHILS % (AUTO) 1.7 % (0-6); HEMATOCRIT 40.3 % (36.0-47.0); HEMOGLOBIN 13.7 g/dL (12.0-15.5); LYMPHOCYTES % (AUTO) 29.3 % (13-45); MEAN CORPUSCULAR HEMOGLOBIN 32.2 pg (27.0-33.4); MEAN CORPUSCULAR HGB CONC 33.9 g/dL (32.0-36.0); MEAN CORPUSCULAR VOLUME 95 fl (80-97); PLATELET COUNT 120 10^3/uL (150-450); RED BLOOD COUNT 4.23 10^6/uL (3.72-5.28); RED CELL DISTRIBUTION WIDTH 14.5 % (11.5-14.0); SEGMENTED NEUTROPHILS % (AUTO) 59.5 % (42-78); TOTAL CELLS COUNTED % (AUTO) 100 %; WHITE BLOOD COUNT 4.6 10^3/uL (4.0-10.5)
[2019-09-13 15:00] LABS: ALBUMIN 2.9 g/dL (3.5-5.0); ALKALINE PHOSPHATASE 144 U/L (38-126); ASPARTATE AMINO TRANSFERASE 39 U/L (14-36); BILIRUBIN,TOTAL 0.7 mg/dL (0.2-1.3); BLOOD UREA NITROGEN 14 mg/dL (7-20); CALCIUM 8.5 mg/dL (8.4-10.2); CARBON DIOXIDE 30 mmol/L (22-30); CHLORIDE 109 mmol/L (98-107); CREATINE KINASE 26 U/L (30-135); GLUCOSE 96 mg/dL (75-110); POTASSIUM 3.4 mmol/L (3.6-5.0); TOTAL PROTEIN 6.2 g/dL (6.3-8.2)
[2019-09-13 15:06] LABS: ANION GAP 1 (5-19)
--- NOTE | 2019-09-13 15:14 | RADIOLOGY REPORT (SQ) ---
EXAM DESCRIPTION: ANKLE RIGHT COMPLETE IMAGES COMPLETED DATE/TIME: 09/13/2019 3:03 pm REASON FOR STUDY: Pain both knees right ankle COMPARISON: None. NUMBER OF VIEWS: Three views. TECHNIQUE: AP, lateral, and oblique radiographic images acquired of the right ankle. LIMITATIONS: None. FINDINGS: MINERALIZATION: Normal. BONES: No acute fracture. 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 Large plantar calcaneal spur. JOINTS: No effusions. SOFT TISSUES: Soft tissue calcifications near the medial malleolus OTHER: No other significant finding. IMPRESSION: . Likely prior soft tissue injury to the medial aspect of the ankle. 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 Prominent calcaneal spur. TECHNICAL DOCUMENTATION: JOB ID: [id number] 2010 [employer]- All Rights Reserved Reading location - IP/workstation name: [email or web address]
--- NOTE | 2019-09-13 15:15 | RADIOLOGY REPORT (SQ) ---
EXAM DESCRIPTION: KNEE RIGHT 4 VIEWS IMAGES COMPLETED DATE/TIME: 09/13/2019 3:03 pm REASON FOR STUDY: Pain and injury to both knees right ankle COMPARISON: None. NUMBER OF VIEWS: Four views. TECHNIQUE: AP, lateral, and both oblique radiographic images acquired of the right knee. LIMITATIONS: None. FINDINGS: MINERALIZATION: Normal. BONES: No acute fracture or dislocation. No worrisome bone lesions. JOINT: No effusion. SOFT TISSUES: No soft tissue swelling. No radio-opaque foreign body. OTHER: Medullary hieu in the distal tibia IMPRESSION: NEGATIVE STUDY OF THE RIGHT KNEE. NO RADIOGRAPHIC EVIDENCE OF ACUTE INJURY. TECHNICAL DOCUMENTATION: JOB ID: [id number] 2010 [employer]- All Rights Reserved Reading location - IP/workstation name: [email or web address]
[2019-09-13] MEDS ORDERED: NORMAL SALINE 1000 ML 1,000 ML IV ONE (15:29)
[2019-09-13 15:50] LABS: APPEARANCE,URINE CLEAR; BILIRUBIN,URINE NEGATIVE (NEGATIVE); COLOR,URINE AMBER; GLUCOSE, URINE NEGATIVE (NEGATIVE); KETONES,URINE NEGATIVE (NEGATIVE); LEUKOCYTE ESTERASE,URINE NEGATIVE (NEGATIVE); NITRITE,URINE NEGATIVE (NEGATIVE); PROTEIN,URINE NEGATIVE (NEGATIVE); URINE SPECIFIC GRAVITY 1.025
--- NOTE | 2019-09-13 16:22 | RADIOLOGY REPORT (SQ) ---
EXAM DESCRIPTION: KNEE LEFT 4 VIEW IMAGES COMPLETED DATE/TIME: 09/13/2019 4:10 pm REASON FOR STUDY: Pain and injury to both knees right ankle COMPARISON: None. NUMBER OF VIEWS: Four views. TECHNIQUE: AP, lateral, and both oblique radiographic images acquired of the left knee. LIMITATIONS: None. FINDINGS: MINERALIZATION: Normal. BONES: Chondroid containing lesion in the distal femur. This may represent enchondroma or bone infar ct. Chondrosarcoma cannot be excluded. JOINT: Joint space narrowing in all compartments with chondrocalcinosis laterally. SOFT TISSUES: No soft tissue swelling. No radio-opaque foreign body. OTHER: No other significant finding. 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 Osteoarthritic changes. Chondrocalc inosis. No acute fracture or dislocation. TECHNICAL DOCUMENTATION: JOB ID: [id number] 2010 [employer]- All Rights Reserved Reading location - IP/workstation name: [email or web address]
[2019-09-13 18:45] VITALS: BP 116/64
== END 2019-09-13 20:46 | disposition home or self-care (01) ==
LOC: ER 13:33
DX: S80.12XA Contusion of left lower leg, initial encounter (principal); M25.561 Pain in right knee; M25.562 Pain in left knee; M25.571 Pain in right ankle and joints of right foot; M25.572 Pain in left ankle and joints of left foot; R19.5 Other fecal abnormalities; G30.9 Alzheimer's disease, unspecified; F02.80 Dementia in other diseases classified elsewhere, unspecified severity, without behavioral disturbance, psychotic disturbance, mood disturbance, and anxiety; X58.XXXA Exposure to other specified factors, initial encounter; J44.9 Chronic obstructive pulmonary disease, unspecified
CPT/HCPCS: 99284; 96360; 51701; 36415; 87086; 82550; 83690; 85025; 80053; 81001; 73610; 73564 ×2; J7030